=== PATIENT | male | born 1985 | race Caucasian/White ===

== ENCOUNTER 2017-06-08 13:19 | Emergency (ER) | payer OTHER ==
[2017-06-08 13:43] VITALS: BP 113/66
--- NOTE | 2017-06-08 13:58 | UC ---
Respiratory Complaint HPI - HPI Summary HPI Summary: 32 yo male with type I DM presents with cough and congestion x 3 days no CP or SOB malaise and myalgias vomiting x 1 when he gagged on phelgm high blood sugars since ill gets bronchitis once/yr and this is his typical presentation - History of Current Complaint Chief Complaint: UCGeneralIllness Stated Complaint: FLU LIKE SXS Time Seen by Provider: 06/08/17 13:44 Hx Obtained From: Patient Onset/Duration: Gradual Onset, Lasting Days Timing: Constant Severity Initially: Mild Severity Currently: Moderate Pain Intensity: 4 Pain Scale Used: 0-10 Numeric Character: Cough: Productive Aggravating Factors: Exertion, Deep Breaths Alleviating Factors: Nothing Associated Signs And Symptoms: Positive: Chills, Nasal Congestion. Negative: Dyspnea Related History: Similar Episode/Dx as: - bronchitis - Allergies/Home Medications Allergies/Adverse Reactions: Allergies Allergy/AdvReac Type Severity Reaction Status Date / Time Cefaclor [From [facility]] Allergy Severe Hives Verified 06/08/17 13:34 Penicillins Allergy Severe Anaphylatic Verified 06/08/17 13:34 Shock PMH/Surg Hx/FS Hx/Imm Hx Previously Healthy: Yes Endocrine History: Diabetes Respiratory History: Bronchitis, Pneumonia - x1 as child - Surgical History Surgical History: None - Family History Known Family History: Positive: Cardiac Disease, Hypertension, Diabetes - Social History Alcohol Use: None Substance Use Type: Marijuana Substance Use Comment - Amount & Last Used: "once in a while" Smoking Status (MU): Former Smoker Type: Cigarettes Amount Used/How Often: 1-4 daily Length of Time of Smoking/Using Tobacco: 11 YRS Have You Smoked in the Last Year: Yes When Did the Patient Quit Smoking/Using Tobacco: QUIT NOVEMBER 2015 - Immunization History Most Recent Influenza Vaccination: none Review of Systems Constitutional: Negative Skin: Negative Eyes: Negative ENT: Nasal Discharge Respiratory: Cough Cardiovascular: Negative Gastrointestinal: Negative Genitourinary: Negative Motor: Negative Neurovascular: Negative Musculoskeletal: Negative Neurological: Negative Psychological: Negative All Other Systems Reviewed And Are Negative: Yes Physical Exam Triage Information Reviewed: Yes Appearance: Well-Appearing - non toxic appearing, No Pain Distress, Well- Nourished Vital Signs: Initial Vital Signs Temp 97.5 F 06/08/17 13:35 Pulse 92 06/08/17 13:35 Resp 16 06/08/17 13:35 BP 113/66 06/08/17 13:35 Pulse Ox 99 06/08/17 13:35 Vital Signs Reviewed: Yes Eyes: Positive: Conjunctiva Clear ENT: Positive: Hearing grossly normal, Nasal congestion, Uvula midline. Negative: Nasal drainage, TMs normal, TM bulging, Trismus, Muffled voice, Sinus tenderness Neck exam: Normal Neck: Positive: Supple, Nontender, No Lymphadenopathy Respiratory: Positive: No respiratory distress, No accessory muscle use, Rhonchi Cardiovascular: Positive: RRR, No Murmur Musculoskeletal: Positive: ROM Intact, No Edema Neurological: Positive: Alert Psychological Exam: Normal Skin Exam: Normal UC Diagnostic Evaluation - Laboratory O2 Sat by Pulse Oximetry: 99 - normal /not hypoxic Diagnostic Studies Comment: Udip +++glucose, trace ketones Respiratory Course/Dx - Differential Dx/Diagnosis Provider Diagnoses: acute bronchitis. hyperglycemia Discharge - Discharge Plan Condition: Stable Disposition: HOME Prescriptions: Benzonatate CAP* [Tessalon CAP*] 100 - 200 mg PO TID PRN #28 cap PRN Reason: Cough DOXYcycline CAP(*) [DOXYcycline 100MG CAP(*)] 100 mg PO BID #20 cap Patient Education Materials: Acute Bronchitis (ED) Forms: *Work Release Referrals: Marcos Burkett DO [Primary Care Provider] - 6 Days () Additional Instructions: keep an eye on your blood sugar recheck in ER for new or worsening symptoms
== END 2017-06-08 14:11 | disposition home or self-care (01) ==
LOC: UCCORT 13:19
DX: J20.9 Acute bronchitis, unspecified (principal); E10.65 Type 1 diabetes mellitus with hyperglycemia; F12.90 Cannabis use, unspecified, uncomplicated; Z88.0 Allergy status to penicillin; Z87.01 Personal history of pneumonia (recurrent); Z87.891 Personal history of nicotine dependence
CPT/HCPCS: 81003; 87502; 99212; G0463

== ENCOUNTER 2017-07-28 15:44 | Emergency (ER) | payer OTHER ==
--- NOTE | 2017-07-28 16:09 | UC ---
Respiratory Complaint HPI - HPI Summary HPI Summary: 32 year old male presents with complains of sinus congestion and post nasal drip. - History of Current Complaint Stated Complaint: COUGH Time Seen by Provider: 07/28/17 16:08 Hx Obtained From: Patient Onset/Duration: Sudden Onset Severity Initially: Moderate Severity Currently: Moderate Pain Scale Used: 0-10 Numeric - 5 Character: Cough: Nonproductive Alleviating Factors: Bronchodilator Associated Signs And Symptoms: Positive: Negative - Allergies/Home Medications Allergies/Adverse Reactions: Allergies Allergy/AdvReac Type Severity Reaction Status Date / Time Cefaclor [From Ceclor] Allergy Severe Hives Verified 07/28/17 16:13 Penicillins Allergy Severe Anaphylatic Verified 07/28/17 16:13 Shock Home Medications: Home Medications Ibuprofen [Ibuprofen 200 MG] 800 mg PO PRN 07/28/17 [History] PMH/Surg Hx/FS Hx/Imm Hx Previously Healthy: Yes - Surgical History Surgical History: None - Family History Known Family History: Positive: Unknown, Cardiac Disease, Hypertension, Diabetes - Social History Alcohol Use: None Substance Use Type: Marijuana Substance Use Comment - Amount & Last Used: "once in a while" Smoking Status (MU): Former Smoker Type: Cigarettes Amount Used/How Often: 1-4 daily Length of Time of Smoking/Using Tobacco: 11 YRS Have You Smoked in the Last Year: Yes When Did the Patient Quit Smoking/Using Tobacco: QUIT NOVEMBER 2015 - Immunization History Most Recent Influenza Vaccination: none Review of Systems Constitutional: Negative Skin: Negative Eyes: Negative ENT: Sore Throat, Nasal Discharge, Sinus Congestion, Sinus Pain/Tenderness Respiratory: Cough Cardiovascular: Negative Gastrointestinal: Negative Genitourinary: Negative Motor: Negative Neurovascular: Negative Musculoskeletal: Negative Neurological: Negative Psychological: Negative All Other Systems Reviewed And Are Negative: Yes Physical Exam Triage Information Reviewed: Yes Vital Signs Reviewed: Yes Eye Exam: Normal ENT: Positive: Pharyngeal erythema, Nasal congestion, Nasal drainage, Sinus tenderness Dental Exam: Normal Neck exam: Normal Neck: Positive: 1 Respiratory Exam: Normal Cardiovascular Exam: Normal Abdominal Exam: Normal Musculoskeletal Exam: Normal Neurological Exam: Normal Psychological Exam: Normal Skin Exam: Normal Respiratory Course/Dx - Differential Dx/Diagnosis Provider Diagnoses: post nasal drip. nasal congestion. sore throat Discharge - Discharge Plan Condition: Stable Disposition: HOME Prescriptions: Azithromyxin JEROMY (NF) [Z-Jeromy (Zithromax) 250 mg tabs #6] 2 tab PO .TODAY, THEN 1 DAILY #6 tab LoraTADine TAB(NF) [Claritin 10 MG TAB(NF)] 10 mg PO DAILY #30 tab Magic M W2 Chavo/Maal/Nyst/Lido* 5 ml SWISH SPIT QID PRN #120 ml PRN Reason: Pain Methylprednisolone [Medrol Dosepak 4 MG*] 4 mg PO .SEE JEROMY INSTRUCTION #21 tab Patient Education Materials: Sinusitis (ED) Forms: *Work Release Referrals: Marcos Burkett DO [Primary Care Provider] -
[2017-07-28 16:22] VITALS: BP 124/68
== END 2017-07-28 16:37 | disposition home or self-care (01) ==
LOC: UCCORT 15:44
DX: J02.9 Acute pharyngitis, unspecified (principal); R09.82 Postnasal drip; R09.81 Nasal congestion; Z88.1 Allergy status to other antibiotic agents; Z88.0 Allergy status to penicillin; Z87.891 Personal history of nicotine dependence
CPT/HCPCS: 99212; G0463

== ENCOUNTER 2017-10-14 12:01 | Emergency (ER) | payer OTHER ==
[2017-10-14 12:26] VITALS: BP 134/90
[2017-10-14] MEDS ORDERED: Ondansetron ODT TAB* 4 MG PO ONE (13:07)
--- NOTE | 2017-10-14 13:15 | UC ---
Abdominal Pain Female HPI - HPI Summary HPI Summary: patient is a type 1 diabetic with an insulin pump---reports a coworker came down with GI BUG and now he has similar sx---6-7 episodes of vomiting and diarrhea beginning at 1 am---patient is hoping for rx of zofran - History of Current Complaint Hx Obtained From: Patient Onset/Duration: Sudden Onset, Lasting Hours - 12 Timing: Constant Severity Initially: Moderate Severity Currently: Moderate Pain Intensity: 8 Pain Scale Used: 0-10 Numeric Location: Diffuse Radiates: No Character: Colicy, Cramping Aggravating Factor(s): Food Alleviating Factor(s): Vomiting Associated Signs and Symptoms: Positive: Nausea, Vomiting, Diarrhea <Brisa Pope - Last Filed: 10/19/17 12:15> <Regla Mills - Last Filed: 10/19/17 14:55> - History of Current Complaint Chief Complaint: UCAbdominalPain Stated Complaint: VOMITING,CHILLS Time Seen by Provider: 10/14/17 12:59 Allergies/Adverse Reactions: Allergies Allergy/AdvReac Type Severity Reaction Status Date / Time cefaclor [From Ceclor] Allergy Hives Verified 10/14/17 12:18 Penicillins Allergy Anaphylatic Verified 10/14/17 12:18 Shock PMH/Surg Hx/FS Hx/Imm Hx Previously Healthy: No Endocrine History: Diabetes - Surgical History Surgical History: None - Family History Known Family History: Positive: Unknown, Cardiac Disease, Hypertension, Diabetes - Social History Occupation: Employed Full-time Lives: With Family Alcohol Use: None Substance Use Type: Marijuana Substance Use Comment - Amount & Last Used: "once in a while" Smoking Status (MU): Former Smoker Type: Cigarettes Amount Used/How Often: 1-4 daily Length of Time of Smoking/Using Tobacco: 11 YRS Have You Smoked in the Last Year: Yes When Did the Patient Quit Smoking/Using Tobacco: QUIT NOVEMBER 2015 - Immunization History Most Recent Influenza Vaccination: none <Brisa Pope - Last Filed: 10/19/17 12:15> Review of Systems Constitutional: Chills, Fatigue Skin: Negative Eyes: Negative ENT: Negative Respiratory: Negative Cardiovascular: Negative Gastrointestinal: Abdominal Pain, Vomiting, Diarrhea, Nausea Genitourinary: Negative Motor: Negative Neurovascular: Negative Musculoskeletal: Negative Neurological: Negative Psychological: Negative Is Patient Immunocompromised?: No All Other Systems Reviewed And Are Negative: Yes <Brisa Pope - Last Filed: 10/19/17 12:15> Physical Exam Triage Information Reviewed: Yes Appearance: Well-Appearing, No Pain Distress - no odor of ketosis, Well- Nourished Vital Signs: Initial Vital Signs Temp 98 F 10/14/17 12:19 Pulse 84 10/14/17 12:19 Resp 16 10/14/17 12:19 BP 134/90 10/14/17 12:19 Pulse Ox 100 10/14/17 12:19 Eye Exam: Normal Eyes: Positive: Conjunctiva Clear ENT Exam: Normal ENT: Positive: Normal ENT inspection, Hearing grossly normal, Pharynx normal, TMs normal, Uvula midline. Negative: Nasal congestion, Nasal drainage, Trismus , Muffled voice, Hoarse voice, Dental tenderness, Sinus tenderness Dental Exam: Normal Neck exam: Normal Neck: Positive: Supple, Nontender, No Lymphadenopathy Respiratory Exam: Normal Respiratory: Positive: Chest non-tender, Lungs clear, Normal breath sounds, No respiratory distress, No accessory muscle use Cardiovascular Exam: Normal Cardiovascular: Positive: RRR, No Murmur, Pulses Normal, Brisk Capillary Refill Abdominal Exam: Other Abdomen Description: Positive: No Organomegaly, Soft, Other: - diffuse tenderness. Negative: CVA Tenderness (R), CVA Tenderness (L) Bowel Sounds: Positive: Present Musculoskeletal Exam: Normal Musculoskeletal: Positive: Strength Intact, ROM Intact, No Edema Neurological Exam: Normal Neurological: Positive: Alert, Muscle Tone Normal Psychological Exam: Normal Psychological: Positive: Normal Response To Family, Age Appropriate Behavior Skin Exam: Normal <Brisa Pope - Last Filed: 10/19/17 12:15> Vital Signs: Initial Vital Signs Temp 98 F 10/14/17 12:19 Pulse 84 10/14/17 12:19 Resp 16 10/14/17 12:19 BP 134/90 10/14/17 12:19 Pulse Ox 100 10/14/17 12:19 <Regla Mills - Last Filed: 10/19/17 14:55> Diagnostics - Laboratory Diagnostic Studies Completed/Ordered: FSBS 412, Urine NO Ketones, +2 glucose <Brisa Pope - Last Filed: 10/19/17 12:15> Abd Pain Female Course/Dx - Course Course Of Treatment: extensive discussion regarding dehydration and ketosis. PAtient is refuseing hospital treatment at this time. He is agreeable that if not resolved in 8-12 hours OR WORSENS AT ANYTIME, to go directly to hospital, will rx zofran and encourage to advance clear liquids as tolerated - Differential Dx/Diagnosis Provider Diagnoses: hyperglycemia, acute nausea, vomiting, diarrhea, viral syndrome <Brisa Pope - Last Filed: 10/19/17 12:15> Discharge - Sign-Out/Discharge Documenting (check all that apply): Discharge - Billing Disposition and Condition Condition: STABLE Disposition: HOME <Brisa Pope - Last Filed: 10/19/17 12:15> - Billing Disposition and Condition Condition: STABLE Disposition: HOME <Regla Mills - Last Filed: 10/19/17 14:55> - Discharge Plan Condition: Stable Disposition: HOME Prescriptions: Ondansetron ODT TAB* [Zofran 4 MG Odt TAB*] 4 mg PO Q6H PRN #8 tab.odt PRN Reason: nausea/vomiting Patient Education Materials: Clear Liquid Diet (ED), Managing Diabetes During Sick Days (ED), Acute Nausea and Vomiting (ED), Diabetic Hyperglycemia (ED) Forms: *Work Release Referrals: Marcos Burkett, [Primary Care Provider] - 2 Days Attestation Statement User Type: Provider - I was available for consult. This patient was seen by the [facility]. The patient was not presented to, seen by, or examined by me. -Pramodj <Regla Mills - Last Filed: 10/19/17 14:55>
== END 2017-10-14 14:09 | disposition home or self-care (01) ==
LOC: UCEAST 12:01
DX: E10.65 Type 1 diabetes mellitus with hyperglycemia (principal); Z96.41 Presence of insulin pump (external) (internal); B34.9 Viral infection, unspecified; R11.2 Nausea with vomiting, unspecified; R19.7 Diarrhea, unspecified; Z88.1 Allergy status to other antibiotic agents; Z88.0 Allergy status to penicillin; Z87.891 Personal history of nicotine dependence
CPT/HCPCS: 81003; 99212; A9270-GY; G0463

== ENCOUNTER 2017-11-09 09:36 | Emergency (ER) | payer OTHER ==
[2017-11-09 12:04] VITALS: BP 143/93
--- NOTE | 2017-11-09 12:12 | UC ---
Dental HPI - HPI Summary HPI Summary: PATIENT WITH 4 DAYS OF LEFT LOWER DENTAL PAIN. STATES HIS WISDOM TOOTH IS IMPACTED. HE HAS BEEN USING IBUPROFEN 800 MG WITH ADEQUATE RELIEF UNTIL YESTERDAY WHEN IT NO LONGER WORKED. HAS AN APPOINTMENT WITH HIS DENTIST TOMORROW AND IS HERE LOOKING FOR SOME PAIN MEDICATION TO GET HIM THROUGH UNTIL HIS APPOINTMENT. - History of Current Complaint Chief Complaint: UCDentalProblem Stated Complaint: DENTAL PAIN Time Seen by Provider: 11/09/17 11:47 Hx Obtained From: Patient Onset/Duration: Gradual Onset, Lasting Days, Still Present Pain Intensity: 9 Pain Scale Used: 0-10 Numeric Aggravating Factor(s): Chewing - Allergies/Home Medications Allergies/Adverse Reactions: Allergies Allergy/AdvReac Type Severity Reaction Status Date / Time cefaclor [From [facility]] Allergy Hives Verified 11/09/17 09:47 Penicillins Allergy Anaphylatic Verified 11/09/17 09:47 Shock Home Medications: Home Medications Ibuprofen TAB* [Advil TAB*] 800 mg PO Q6HR PRN 11/09/17 [History Confirmed 11/09] PMH/Surg Hx/FS Hx/Imm Hx Endocrine History: Diabetes - TYPE I Respiratory History: Asthma Psychological History: Anxiety - Surgical History Surgical History: None - Family History Known Family History: Positive: Cardiac Disease, Hypertension, Diabetes - Social History Alcohol Use: None Substance Use Type: Marijuana Substance Use Comment - Amount & Last Used: occassionally Smoking Status (MU): Current Some Day Smoker Type: Cigarettes Amount Used/How Often: 5 cig weekly' Length of Time of Smoking/Using Tobacco: 11 YRS Have You Smoked in the Last Year: Yes When Did the Patient Quit Smoking/Using Tobacco: QUIT NOVEMBER 2015 - Immunization History Most Recent Influenza Vaccination: none Review of Systems Constitutional: Negative Skin: Negative ENT: Dental Pain Respiratory: Negative Cardiovascular: Negative Gastrointestinal: Negative All Other Systems Reviewed And Are Negative: Yes Physical Exam Triage Information Reviewed: Yes Appearance: Well-Appearing, No Pain Distress, Well-Nourished Vital Signs: Initial Vital Signs Temp 97.6 F 11/09/17 09:48 Pulse 87 11/09/17 09:48 Resp 16 11/09/17 09:48 BP 137/96 11/09/17 09:48 Pulse Ox 100 11/09/17 09:48 Vital Signs Reviewed: Yes Eyes: Positive: Conjunctiva Clear ENT: Positive: Hearing grossly normal, Pharynx normal Dental: Positive: Percussion Tenderness @ - LEFT LOWER 3RD MOLAR, Other: - LEFT LOWER 3RD MOLAR IMPACTED Neck: Positive: Supple, Nontender, No Lymphadenopathy Respiratory: Positive: No respiratory distress, No accessory muscle use Cardiovascular: Positive: Pulses Normal Abdomen Description: Positive: Soft Musculoskeletal: Positive: No Edema Neurological: Positive: Alert Psychological: Positive: Age Appropriate Behavior Skin: Negative: rashes Dental Complaint Course/Dx - Differential Dx/Diagnosis Provider Diagnoses: DENTAL PAIN/IMPACTED LEFT LOWER 3RD MOLAR Discharge - Sign-Out/Discharge Documenting (check all that apply): Discharge/Admit/Transfer - Discharge Plan Condition: Stable Disposition: HOME Prescriptions: Chlorhexidine MW 0.12% 473ML* [Peridex Mouth Wash 0.12%*] 15 ml SWISH SPIT BID # 1 bottle HYDROcodone/ACETAMIN 5-325 MG* [Kingsley 5-325 TAB*] 1 tab PO Q6H PRN #15 tab MDD 4 PRN Reason: Pain Patient Education Materials: Toothache (ED) Forms: *Work Release Referrals: Marcos Burkett DO [Primary Care Provider] - If Needed Additional Instructions: NO SIGN OF INFECTION TODAY. KEEP YOUR FOLLOW-UP WITH YOUR DENTIST TOMORROW. - Billing Disposition and Condition Condition: STABLE Disposition: HOME
== END 2017-11-09 12:10 | disposition home or self-care (01) ==
LOC: UCEAST 09:36
DX: K01.1 Impacted teeth (principal); F17.210 Nicotine dependence, cigarettes, uncomplicated; Z88.3 Allergy status to other anti-infective agents; Z88.0 Allergy status to penicillin
CPT/HCPCS: 99212; G0463

== ENCOUNTER 2017-11-15 11:45 | Emergency (ER) | payer OTHER ==
[2017-11-15 12:07] VITALS: BP 152/95
--- NOTE | 2017-11-15 12:36 | UC ---
Dental HPI - HPI Summary HPI Summary: Pt c/o dental pain that began over 10 days ago. Pt was seen here [facility] on for same c/o and was given norco for pain, 4 days worth. Pt states he is scheduled to have 5 teeth extracted as soon as he he saves for cost of extraction~ $3000. - History of Current Complaint Chief Complaint: UCDentalProblem Stated Complaint: TOOTH PAIN Time Seen by Provider: 11/15/17 12:21 Hx Obtained From: Patient Onset/Duration: Gradual Onset, Lasting Days, Still Present Severity: Severe Pain Intensity: 10 Aggravating Factor(s): Heat, Cold, Chewing Alleviating Factor(s): Other (see comments) - narcotics Related History: Previous Dental Care on Same Tooth - Allergies/Home Medications Allergies/Adverse Reactions: Allergies Allergy/AdvReac Type Severity Reaction Status Date / Time cefaclor [From [facility]] Allergy Hives Verified 11/09/17 09:47 Penicillins Allergy Anaphylatic Verified 11/09/17 09:47 Shock Home Medications: Home Medications Clindamycin HCl 300 mg PO Q8H 11/15/17 [History Confirmed 11/15/17] PMH/Surg Hx/FS Hx/Imm Hx Previously Healthy: Yes - Surgical History Surgical History: None - Family History Known Family History: Positive: Cardiac Disease, Hypertension, Diabetes - Social History Occupation: Employed Full-time Lives: With Family Alcohol Use: None Substance Use Type: Marijuana Substance Use Comment - Amount & Last Used: occassionally, USED IT YESTERDAY Smoking Status (MU): Current Some Day Smoker Type: Cigarettes Amount Used/How Often: 5 cig weekly' Length of Time of Smoking/Using Tobacco: 11 YRS Have You Smoked in the Last Year: Yes When Did the Patient Quit Smoking/Using Tobacco: QUIT NOVEMBER 2015 - Immunization History Most Recent Influenza Vaccination: none Review of Systems Constitutional: Negative Skin: Negative Eyes: Negative ENT: Dental Pain Respiratory: Negative Cardiovascular: Negative Gastrointestinal: Negative Genitourinary: Negative Motor: Negative Neurovascular: Negative Musculoskeletal: Negative Neurological: Negative Psychological: Negative Is Patient Immunocompromised?: No All Other Systems Reviewed And Are Negative: Yes Physical Exam Triage Information Reviewed: Yes Appearance: Well-Appearing Vital Signs: Initial Vital Signs Temp 97.4 F 11/15/17 11:59 Pulse 81 11/15/17 11:59 Resp 18 11/15/17 11:59 BP 152/95 11/15/17 11:59 Pulse Ox 100 11/15/17 11:59 Vital Signs Reviewed: Yes Eye Exam: Normal ENT Exam: Normal Dental Exam: Other Dental: Positive: Percussion Tenderness @ Neck exam: Normal Respiratory Exam: Normal Cardiovascular Exam: Normal Musculoskeletal Exam: Normal Neurological Exam: Normal Psychological Exam: Normal Skin Exam: Normal Dental Complaint Course/Dx - Course Course Of Treatment: [place] [facility] [place] and given 4 days supply of norco. Reference #: [id number]. Patient Name:Jay ZhengBirth Date:1985. Address:[address] [place] [id number]:Male. Rx WrittenRx DispensedDrugQuantityDays SupplyPrescriber Name. 2017hydrocodone-acetaminophen 5-325 mg [id number] Menon) - Differential Dx/Diagnosis Differential Diagnosis/Dx: Fractured Tooth Provider Diagnoses: dental pain Discharge - Sign-Out/Discharge Documenting (check all that apply): Discharge/Admit/Transfer - Discharge Plan Condition: Stable Disposition: HOME Prescriptions: Lidocaine 2% VISCOUS* [Xylocaine 2% Viscous*] 15 ml SWISH SPIT Q4H PRN #1 btl PRN Reason: Pain Patient Education Materials: Toothache (ED) Forms: *Work Release Referrals: Marcos Burkett, [Primary Care Provider] - If Needed Additional Instructions: Please follow up with your pCP and dental care provider as soon as possible. - Billing Disposition and Condition Condition: STABLE Disposition: HOME
== END 2017-11-15 12:53 | disposition home or self-care (01) ==
LOC: UCCORT 11:45
DX: K08.89 Other specified disorders of teeth and supporting structures (principal); Z88.1 Allergy status to other antibiotic agents; Z88.0 Allergy status to penicillin; F17.210 Nicotine dependence, cigarettes, uncomplicated
CPT/HCPCS: 99212; G0463

== ENCOUNTER 2017-12-03 14:02 | Emergency (ER) | payer OTHER ==
[2017-12-03 14:42] VITALS: BP 136/81
[2017-12-03] MEDS ORDERED: Ondansetron ODT TAB* 4 MG PO ONE (14:53)
--- NOTE | 2017-12-03 15:12 | ED ---
GI/ HPI - HPI Summary HPI Summary: 32 yr old male with the complaint of NVD. Onset 300 am today. Denies abdominal pain presently, he states prior to getting diarrhea he gets cramps. he feels he has a stomach bug. He has been able to hold down clear liquids, but food makes him nauseated. The patient denies fever, chills. Denies dizziness. He is a type one diabetic for 25 years. He states he has an insulin pump. He has not been. - History of Current Complaint Chief Complaint: UCGI Time Seen by Provider: 12/03/17 14:45 Stated Complaint: VOMITTING Pain Intensity: 8 - Allergy/Home Medications Allergies/Adverse Reactions: Allergies Allergy/AdvReac Type Severity Reaction Status Date / Time cefaclor [From [facility]] Allergy Hives Verified 12/03/17 14:33 Penicillins Allergy Anaphylatic Verified 12/03/17 14:33 Shock PMH/Surg Hx/FS Hx/Imm Hx Endocrine/Hematology History: Reports: Hx Diabetes - Type I Denies: Hx Thyroid Disease Cardiovascular History: Denies: Hx Hypertension Respiratory History: Reports: Hx Asthma Denies: Hx Chronic Obstructive Pulmonary Disease (COPD) GI History: Denies: Hx Ulcer Neurological History: Reports: Hx Peripheral Neuropathy Infectious Disease History: No Infectious Disease History: Denies: Hx Clostridium Difficile, Hx Hepatitis, Hx Human Immunodeficiency Virus (HIV), Hx of Known/Suspected MRSA, Hx Shingles, Hx Tuberculosis, Hx Known/ Suspected VRE, Hx Known/Suspected VRSA, History Other Infectious Disease, Traveled Outside the [place] in Last 30 Days - Family History Known Family History: Positive: Cardiac Disease, Hypertension, Diabetes - Social History Alcohol Use: None Hx Substance Use: Yes Substance Use Type: Reports: Marijuana Substance Use Comment - Amount & Last Used: occassionally, 2 nights ago Hx Tobacco Use: Yes Smoking Status (MU): Former Smoker Type: Cigarettes Amount Used/How Often: 5 cig weekly Length of Time of Smoking/Using Tobacco: 11 YRS Have You Smoked in the Last Year: Yes Review of Systems Constitutional: Negative Negative: Palpitations, Chest Pain Negative: Shortness Of Breath, Cough Positive: Vomiting, Diarrhea, Nausea Negative: Rash Negative: Headache, Weakness All Other Systems Reviewed And Are Negative: Yes Physical Exam Triage Information Reviewed: Yes Vital Signs On Initial Exam: Initial Vitals Temp Pulse Resp BP Pulse Ox 97.6 F 89 16 136/81 99 12/03/17 14:34 12/03/17 14:34 12/03/17 14:34 12/03/17 14:34 12/03/17 14:34 Vital Signs Reviewed: Yes Appearance: Positive: Well-Appearing, No Pain Distress Skin: Positive: Skin Color Reflects Adequate Perfusion Eyes: Positive: EOMI ENT: Positive: Pharynx normal Neck: Positive: Supple Respiratory/Lung Sounds: Positive: Clear to Auscultation, Breath Sounds Present Cardiovascular: Positive: RRR. Negative: Murmur Abdomen Description: Positive: Nontender Musculoskeletal: Positive: Strength/ROM Intact Neurological: Positive: Sensory/Motor Intact, Alert, Oriented to Person Place, Time, CN Intact II-III Psychiatric: Positive: Normal - Regina Coma Scale Best Eye Response: 4 - Spontaneous Best Motor Response: 6 - Obeys Commands Best Verbal Response: 5 - Oriented Coma Scale Total: 15 Diagnostics - Vital Signs Vital Signs Temp Pulse Resp BP Pulse Ox 12/03/17 14:34 97.6 F 89 16 136/81 99 - Laboratory Lab Statement: Any lab studies that have been ordered have been reviewed, and results considered in the medical decision making process. GIGU Course/Dx - Course Course Of Treatment: 32 yr with trace ketones in his urine. He states prior to coming here his BS was 355 on his meter at home. he is not dizzy, tachy or light headed. Our accu check machine is not functioning at this time to read his blood sugar. He does not smell of ketones or look toxic. He wants to drive himself to [place] ER for blood work and further evaluation. he feels better after the zofran here, and he feels completely comfortable driving. - Diagnoses Provider Diagnoses: Gastroenteritis, Diabetes mellitus, Hypertension Discharge - Sign-Out/Discharge Documenting (check all that apply): Discharge/Admit/Transfer - Discharge Plan Condition: Good Disposition: [facility] Patient Education Materials: Type 1 Diabetes in Adults: New Diagnosis (ED), Gastroenteritis (ED), Hypertension (ED) Referrals: Marcos Burkett DO [Primary Care Provider] - Additional Instructions: You need to go to the ER here in [place] for further evaluation of the state of your diabetes, blood sugar. Do not delay, go now. You have chosen to not go by ambulance. - Billing Disposition and Condition Condition: GOOD Disposition: EMTALA
== END 2017-12-03 15:53 | disposition short-term general hospital (02) ==
LOC: UCCORT 14:02
DX: K52.9 Noninfective gastroenteritis and colitis, unspecified (principal); E11.9 Type 2 diabetes mellitus without complications; I10 Essential (primary) hypertension; Z87.891 Personal history of nicotine dependence; Z88.3 Allergy status to other anti-infective agents; Z88.0 Allergy status to penicillin
CPT/HCPCS: 81003; 99212; A9270-GY; G0463

== ENCOUNTER 2018-02-07 17:12 | Emergency (ER) | payer OTHER ==
[2018-02-07 18:01] VITALS: BP 129/83
--- NOTE | 2018-02-07 18:13 | UC ---
Lower Extremity/Ankle HPI - HPI Summary HPI Summary: This is keith Russell documenting for attending Johnathon Meehan MD. This patient is a 32 year old M presenting to [facility] accompanied by friend with a chief complaint of bilateral lower extremity edema that began 3 days ago. The patient rates the pain 6/10 in severity. Symptoms aggravated by nothing. Symptoms alleviated by nothing. Patient denies abd swelling, SOB, and CP. Pt reports having similar symptoms previously, and being told he had kidney issues . Pt reports he recently ate more ramen than he usually does. Medications reviewed. Allergies reviewed. - History of Current Complaint Chief Complaint: UCLowerExtremity Stated Complaint: LEG SWELLING Time Seen by Provider: 02/07/18 18:05 Hx Obtained From: Patient Onset/Duration: Sudden Onset, Lasting Days, Still Present Severity Initially: Moderate Severity Currently: Moderate Pain Intensity: 6 Pain Scale Used: 0-10 Numeric Aggravating Factor(s): Nothing Alleviating Factor(s): Nothing Able to Bear Weight: Yes - Allergies/Home Medications Allergies/Adverse Reactions: Allergies Allergy/AdvReac Type Severity Reaction Status Date / Time cefaclor [From Ceclor] Allergy Hives Verified 02/07/18 18:02 Penicillins Allergy Anaphylatic Verified 02/07/18 18:02 Shock PMH/Surg Hx/FS Hx/Imm Hx Previously Healthy: No Endocrine History: Diabetes - Type 1 Respiratory History: Asthma - Surgical History Surgical History: None - Family History Known Family History: Positive: Cardiac Disease, Hypertension, Diabetes - Social History Occupation: Employed Full-time Lives: Alone Alcohol Use: None Substance Use Type: Marijuana Substance Use Comment - Amount & Last Used: daily Smoking Status (MU): Light Every Day Tobacco Smoker Type: Cigarettes Amount Used/How Often: 5 cig weekly Length of Time of Smoking/Using Tobacco: 11 YRS Have You Smoked in the Last Year: Yes When Did the Patient Quit Smoking/Using Tobacco: QUIT NOVEMBER 2015 - Immunization History Most Recent Influenza Vaccination: none Review of Systems Respiratory: Other - Negative SOB Cardiovascular: Other - Negative CP Gastrointestinal: Other - Negative abd swelling Musculoskeletal: Edema All Other Systems Reviewed And Are Negative: Yes Physical Exam - Summary Physical Exam Summary: General: well-appearing, no pain distress Skin: warm, color reflects adequate perfusion, dry. Head: normal Eyes: EOMI, CHAPIS ENT: normal Neck: supple, nontender Respiratory: CTA, breath sounds present Cardiovascular: RRR Abdomen: soft, nontender Bowel: present Musculoskeletal: Bilateral pedal edema. No erythema. No calor, strength/ROM intact Neurological: sensory/motor intact, A&O x3 Psychological: affect/mood appropriate Triage Information Reviewed: Yes Vital Signs: Initial Vital Signs Temp 97.4 F 02/07/18 17:55 Pulse 85 02/07/18 17:55 Resp 16 02/07/18 17:55 BP 129/83 02/07/18 17:55 Pulse Ox 100 02/07/18 17:55 Vital Signs Reviewed: Yes Lower Extremity Course/Dx - Course Course Of Treatment: NO SOB. LUNGS CTA. ABD NON DISTENDED. NO HX RENAL INSUFFICIENCY. WILL RX HCTZ 12.5MG PO QD PRN EDEMA AND CHECK KIDNEY FUNCTION. IF THE PATIENT HAS RENAL INSUFFICIENCY, HE WILL NEED TO STOP THE HCTZ. F/U PMD; RECHECK SOONER IF WORSE. - Differential Dx/Diagnosis Provider Diagnoses: BILATERAL PEDAL EDEMA Discharge - Sign-Out/Discharge Documenting (check all that apply): Patient Departure - Discharge Plan Condition: Stable Disposition: HOME Prescriptions: hydroCHLOROthiazide [Hydrochlorothiazide] 12.5 mg PO DAILY #7 tablet Patient Education Materials: Leg Edema (ED) Forms: *Work Release Referrals: Marcos Burkett DO [Primary Care Provider] - Additional Instructions: FOLLOW UP WITH YOUR DOCTOR. YOUR KIDNEY FUNCTION LAB TESTS ARE PENDING. IF YOUR KIDNEY FUNCTION IS IMPAIRED , DO NOT TAKE ANY MORE OF THE HCTZ AND CONTACT YOUR DOCTOR. GET RECHECKED FOR ANY WORSENING OF YOUR CONDITION; SHORTNESS OF BREATH, YOU FEEL ILL OR QUESTIONS OR CONCERNS. - Billing Disposition and Condition Condition: STABLE Disposition: Home
[2018-02-08 11:19] LABS: EGFR Non-African American 99.1 (>60)
[2018-02-08 11:22] LABS: ABS Basophils 0.1 10^3/ul (0-0.2); ABS Eosinophils 0.1 10^3/ul (0-0.6); ABS Lymphocytes 2.2 10^3/ul (1.0-4.8); ABS Monocytes 0.6 10^3/ul (0-0.8); ABS Neutrophils 5.1 10^3/ul (1.5-7.7); ABS Nucleated RBC 0 10^3/ul; Eosinophil % 1.7 % (0-6); Hematocrit 42 % (42-52); Lymphocyte % 26.6 % (25-47); Mean Corpuscular HGB Conc 36 g/dl (31-36); Mean Corpuscular Hemoglobin 29 pg (27-31); Mean Corpuscular Volume 82 fL (80-94); Mean Platelet Volume 10.3 um3 (7.4-10.4); Nucleated Red Blood Cells % 0.2; Platelet Count 207 10^3/ul (150-450); Red Blood Count 5.19 10^6/ul (4.00-5.40); Red Cell Distribution Width 13 % (10.5-15); White Blood Count 8.1 10^3/ul (3.5-10.8)
--- NOTE | 2018-02-08 16:11 | UC ---
- Progress Note Progress Note: CBC, BNP, and CMP WNL. glucose is high, but pt is diabetic. No change in plan Discharge - Sign-Out/Discharge Documenting (check all that apply): Patient Departure, Post-Discharge Follow Up - Discharge Plan Condition: Stable Disposition: HOME Prescriptions: hydroCHLOROthiazide [Hydrochlorothiazide] 12.5 mg PO DAILY #7 tablet Patient Education Materials: Leg Edema (ED) Forms: *Work Release Referrals: Marcos Burkett DO [Primary Care Provider] - Additional Instructions: FOLLOW UP WITH YOUR DOCTOR. YOUR KIDNEY FUNCTION LAB TESTS ARE PENDING. IF YOUR KIDNEY FUNCTION IS IMPAIRED , DO NOT TAKE ANY MORE OF THE HCTZ AND CONTACT YOUR DOCTOR. GET RECHECKED FOR ANY WORSENING OF YOUR CONDITION; SHORTNESS OF BREATH, YOU FEEL ILL OR QUESTIONS OR CONCERNS. - Billing Disposition and Condition Condition: STABLE Disposition: Home
== END 2018-02-07 18:23 | disposition home or self-care (01) ==
LOC: UCEAST 17:12
DX: R60.0 Localized edema (principal); Z88.0 Allergy status to penicillin; Z88.1 Allergy status to other antibiotic agents; F17.210 Nicotine dependence, cigarettes, uncomplicated; Z01.818 Encounter for other preprocedural examination
CPT/HCPCS: 36415; 80053; 83880; 85025; 99212; G0463

== ENCOUNTER 2018-02-11 12:48 | Emergency (ER) | payer OTHER ==
[2018-02-11 13:08] VITALS: BP 131/84
[2018-02-11] MEDS ORDERED: Ondansetron ODT TAB* 4 MG PO ONE (13:24)
--- NOTE | 2018-02-11 13:31 | UC ---
General HPI - HPI Summary HPI Summary: Pt presents with c/o of nausea and elevated blood glucose that he "hasn't been able to get control of his sugar". Pt is a type 1 diabetic since age 7. Pt states he was having difficulty with low blood sugar last evening and now feels nauseous and unable to "keep anything down". P treports that at home BG were in 400 range. - History of Current Complaint Chief Complaint: UCGeneralIllness Stated Complaint: GLUCOSE COMPLAINT (TYPE 1 DIABETIC) Time Seen by Provider: 02/11/18 13:09 Hx Obtained From: Patient Onset/Duration: Sudden Onset Timing: Constant Onset Severity: Mild Current Severity: Moderate Pain Intensity: 8 Associated Signs & Symptoms: Positive: Decreased Oral Intake - Allergy/Home Medications Allergies/Adverse Reactions: Allergies Allergy/AdvReac Type Severity Reaction Status Date / Time cefaclor [From Ceclor] Allergy Hives Verified 02/11/18 13:03 Penicillins Allergy Anaphylatic Verified 02/11/18 13:03 Shock Home Medications: Home Medications Acetaminophen [Acetaminophen Extra Strength] 1,000 mg PO Q6H PRN 02/11/18 [ History Confirmed 02/11/18] hydroCHLOROthiazide [Hydrochlorothiazide] 12.5 mg PO ONCE 02/11/18 [History Confirmed 02/11/18] PMH/Surg Hx/FS Hx/Imm Hx Previously Healthy: Yes Endocrine History: Diabetes - Surgical History Surgical History: None - Family History Known Family History: Positive: Cardiac Disease, Hypertension, Diabetes - Social History Occupation: Employed Full-time Lives: With Family Alcohol Use: None Substance Use Type: Marijuana Substance Use Comment - Amount & Last Used: Daily & 02/10/18 Smoking Status (MU): Light Every Day Tobacco Smoker Type: Cigarettes Amount Used/How Often: 5 cigarettes/week Length of Time of Smoking/Using Tobacco: 11 YRS Have You Smoked in the Last Year: Yes When Did the Patient Quit Smoking/Using Tobacco: QUIT NOVEMBER 2015 - Immunization History Most Recent Influenza Vaccination: none Review of Systems Constitutional: Fatigue Skin: Negative Eyes: Negative ENT: Negative Respiratory: Negative Cardiovascular: Negative Gastrointestinal: Vomiting, Nausea Genitourinary: Negative Motor: Negative Neurovascular: Negative Musculoskeletal: Negative Neurological: Headache Psychological: Negative Is Patient Immunocompromised?: No All Other Systems Reviewed And Are Negative: Yes Physical Exam Triage Information Reviewed: Yes Appearance: Ill-Appearing Vital Signs: Initial Vital Signs Temp 98.6 F 02/11/18 13:00 Pulse 92 02/11/18 13:00 Resp 16 02/11/18 13:00 BP 131/84 02/11/18 13:00 Pulse Ox 100 02/11/18 13:00 Vital Signs Reviewed: Yes Eye Exam: Normal ENT Exam: Normal Dental Exam: Normal Neck exam: Normal Respiratory Exam: Normal Cardiovascular Exam: Normal Musculoskeletal Exam: Normal Neurological Exam: Normal Psychological Exam: Normal Skin Exam: Normal Diagnostics - Laboratory Diagnostic Studies Completed/Ordered: UC fingerstick BG, out of range.so, greater than 400 Course/Dx - Course Course Of Treatment: I discussed with the pt the need to follow up with his PCP as soon as possible and if symptoms do not imporve the need to go to closest ER. Pt verbalized understanding and agreed to plan of eduard. - Differential Dx - Multi-Symptom Provider Diagnoses: nausea. hyperglycemia Discharge - Sign-Out/Discharge Documenting (check all that apply): Patient Departure - Discharge Plan Condition: Stable Disposition: HOME Prescriptions: Ondansetron HCl [Zofran] 8 mg PO Q8H PRN #15 tablet PRN Reason: Nausea Patient Education Materials: Managing Diabetes During Sick Days (ED), Acute Nausea and Vomiting (ED), Diabetic Hyperglycemia (ED) Forms: *Work Release Referrals: Marcos Burkett, DO [Primary Care Provider] - As Soon As Possible Additional Instructions: Please follow up as soon as possible with your PCP. If your symptoms do not improve, please seek care at the closest emergency room as soon as possible. Per institutional requirements, I have reviewed the chart, however, I was not consulted specifically or made aware of this patient by the above midlevel provider. I did not personally evaluate, interact with , or disposition this patient. - Billing Disposition and Condition Condition: STABLE Disposition: Home
== END 2018-02-11 13:41 | disposition home or self-care (01) ==
LOC: UCCORT 12:48
DX: R11.0 Nausea (principal); E10.65 Type 1 diabetes mellitus with hyperglycemia; Z88.1 Allergy status to other antibiotic agents; Z88.0 Allergy status to penicillin; Z87.891 Personal history of nicotine dependence
CPT/HCPCS: 99212; A9270-GY; G0463

== ENCOUNTER 2018-04-13 15:50 | Emergency (ER) | payer OTHER ==
[2018-04-13 16:26] VITALS: BP 147/85
--- NOTE | 2018-04-13 16:47 | UC ---
Skin Complaint HPI - HPI Summary HPI Summary: 32-year-old male comes in with painful lump in his left axilla. Started couple days ago and is gotten worse. He recently had an abscess in his left axilla incised and drained. It is adjacent to the new lump. He is not on antibiotics he doesn't have fever. He is a type I diabetic. He does shave his armpit here for the incision and drainage of the other abscess and he wonders if this encourage this abscess developing. - History of Current Complaint Chief Complaint: UCSkin Time Seen by Provider: 04/13/18 16:35 Stated Complaint: SKIN ISSUE Pain Intensity: 8 - Allergy/Home Medications Allergies/Adverse Reactions: Allergies Allergy/AdvReac Type Severity Reaction Status Date / Time cefaclor [From [facility]] Allergy Hives Verified 04/13/18 16:17 Penicillins Allergy Anaphylatic Verified 04/13/18 16:17 Shock Home Medications: Home Medications Ibuprofen TAB* [Advil TAB*] 800 mg PO Q6H PRN 04/13/18 [History Confirmed ] Review of Systems Constitutional: Negative Skin: Other - See history present illness Eyes: Negative ENT: Negative Respiratory: Negative Cardiovascular: Negative Gastrointestinal: Negative Motor: Negative Neurovascular: Negative Musculoskeletal: Negative Neurological: Negative Psychological: Negative Is Patient Immunocompromised?: No All Other Systems Reviewed And Are Negative: Yes PMH/Surg Hx/FS Hx/Imm Hx Endocrine History: Diabetes - Surgical History Surgical History: None - Family History Known Family History: Positive: Cardiac Disease, Hypertension, Diabetes - Social History Alcohol Use: None Substance Use Type: Marijuana Substance Use Comment - Amount & Last Used: daily Smoking Status (MU): Current Some Day Smoker Type: Cigarettes Amount Used/How Often: 3 cigarettes/week Length of Time of Smoking/Using Tobacco: 11 YRS Have You Smoked in the Last Year: Yes When Did the Patient Quit Smoking/Using Tobacco: QUIT NOVEMBER 2015 - Immunization History Most Recent Influenza Vaccination: none Physical Exam Triage Information Reviewed: Yes Appearance: Well-Appearing, No Pain Distress, Well-Nourished Vital Signs: Initial Vital Signs Temp 98 F 04/13/18 16:20 Pulse 89 04/13/18 16:20 Resp 22 04/13/18 16:20 BP 147/85 04/13/18 16:20 Pulse Ox 100 04/13/18 16:20 Vital Signs Reviewed: Yes Eye Exam: Normal Eyes: Positive: Conjunctiva Clear Neck exam: Normal Neck: Positive: Supple Respiratory: Positive: No respiratory distress Musculoskeletal: Positive: Strength Intact, ROM Intact Neurological Exam: Normal Neurological: Positive: Alert, Muscle Tone Normal Psychological Exam: Normal Psychological: Positive: Normal Response To Family Skin: Positive: Other - In the left axilla there is a 1 cm subcutaneous tender swelling. It is not erythematous. There is no wihte head. Course/Dx - Course Course Of Treatment: The abscess was not large enough at this time for incision and drainage. We'll start the patient on clindamycin. Patient should get rechecked if the area gets bigger or worse. Follow-up with primary care doctor. Recheck here sooner as needed - Diagnoses Provider Diagnoses: LEFT AXILLARY FOLLICULIAR ABCESS Discharge - Sign-Out/Discharge Documenting (check all that apply): Patient Departure All imaging exams completed and their final reports reviewed: No Studies - Discharge Plan Condition: Stable Disposition: HOME Prescriptions: Clindamycin Cap(NF) [Clindamycin Cap 300 mg Cap(NF)] 300 mg PO Q6H #40 cap Patient Education Materials: Abscess (ED) Referrals: Marcos Burkett DO [Primary Care Provider] - Additional Instructions: FOLLOW UP WITH YOUR DOCTOR. GET RECHECKED FOR ANY WORSENING OF YOUR CONDITION OR QUESTIONS OR CONCERNS. - Billing Disposition and Condition Condition: STABLE Disposition: Home
== END 2018-04-13 16:52 | disposition home or self-care (01) ==
LOC: UCCORT 15:50
DX: L02.412 Cutaneous abscess of left axilla (principal); Z88.1 Allergy status to other antibiotic agents; Z88.0 Allergy status to penicillin; Z87.891 Personal history of nicotine dependence
CPT/HCPCS: 99212; G0463

== ENCOUNTER 2018-09-01 18:40 | Emergency (ER) | payer OTHER ==
--- NOTE | 2018-09-01 18:56 | UC ---
FLU HPI - HPI Summary HPI Summary: 33 yo male presents with fever, body aches, and fatigue since yesterday. He has been taking ibuprofen with mild relief. Sleeping a lot. Has a decreased appetite. Has had sick contacts with the flu. Denies SOB, chest pain, abdominal pain, vomiting, diarrhea. - History of Current Complaint Stated Complaint: FEVER/BODY ACHES/COUGH Time Seen by Provider: 09/01/18 18:56 Hx Obtained From: Patient Onset/Duration: Sudden Onset Severity Currently: Severe Severity Initially: Severe Pain Intensity: 10 Pain Scale Used: 0-10 Numeric - Allergy/Home Medications Allergies/Adverse Reactions: Allergies Allergy/AdvReac Type Severity Reaction Status Date / Time cefaclor [From [facility]] Allergy Hives Verified 04/13/18 16:17 Penicillins Allergy Anaphylatic Verified 04/13/18 16:17 Shock PMH/Surg Hx/FS Hx/Imm Hx Endocrine History: Diabetes - Surgical History Surgical History: None - Family History Known Family History: Positive: Cardiac Disease, Hypertension, Diabetes - Social History Occupation: Employed Full-time Lives: With Family Alcohol Use: None Substance Use Type: Marijuana Substance Use Comment - Amount & Last Used: daily Smoking Status (MU): Current Some Day Smoker Type: Cigarettes Amount Used/How Often: 3 cigarettes/week Length of Time of Smoking/Using Tobacco: 11 YRS Have You Smoked in the Last Year: Yes When Did the Patient Quit Smoking/Using Tobacco: QUIT NOVEMBER 2015 - Immunization History Most Recent Influenza Vaccination: none Review of Systems All Other Systems Reviewed And Are Negative: Yes Constitutional: Positive: Fever, Chills, Fatigue, Other - Body aches Skin: Positive: Negative Eyes: Positive: Negative ENT: Positive: Negative Respiratory: Positive: Negative Cardiovascular: Positive: Negative Gastrointestinal: Positive: Negative Neurovascular: Positive: Negative Neurological: Positive: Negative Psychological: Positive: Negative Physical Exam - Summary Physical Exam Summary: GENERAL: NAD. WDWN. No pain distress. SKIN: No rashes, sores, lesions, or open wounds. HEENT: Head: AT/NC Eyes: EOM intact. Conjunctiva clear without inflammation or discharge. Ears: Hearing grossly normal. TMs intact, no bulging, erythema, or edema. Nose: Nasal mucosa pink and moist. NTTP maxillary and frontal sinus. Throat: Posterior oropharynx without exudates, erythema, or tonsillar enlargement. Uvula midline. NECK: Supple. Nontender. No lymphadenopathy. CHEST: CTAB. No r/r/w. No accessory muscle use. Breathing comfortably and in no distress. CV: RRR. Without m/r/g. Pulses intact. Cap refill <2seconds NEURO: Alert. PSYCH: Age appropriate behavior. Triage Information Reviewed: Yes Vital Signs: Vital Signs: Temp Pulse Resp BP Pulse Ox 98 F 105 18 123/77 100 09/01/18 18:56 09/01/18 18:56 09/01/18 18:56 09/01/18 18:56 09/01/18 18:56 Laboratory Tests 09/01/18 18:58 Influenza A (Rapid) Positive A Vital Signs Reviewed: Yes Flu Course/Dx - Course Course Of Treatment: POC flu positive. Advised to rest, drink fluids, and take tylenol/ibuprofen for discomfort. - Differential Dx/Diagnosis Provider Diagnosis: Influenza Discharge - Sign-Out/Discharge Documenting (check all that apply): Patient Departure All imaging exams completed and their final reports reviewed: No Studies - Discharge Plan Condition: Stable Disposition: HOME Patient Education Materials: Influenza (DC) Referrals: Naina Sanchez PA [Primary Care Provider] - Additional Instructions: If you develop a fever, shortness of breath, chest pain, new or worsening symptoms - please call your PCP or go to the ED. May take tylenol/ibuprofen for your fever and discomfort - Billing Disposition and Condition Condition: STABLE Disposition: Home - Attestation Statements Provider Attestation: Per institutional requirements, I have reviewed the chart, however, I was not consulted specifically or made aware of this patient by the midlevel provider. I did not personally evaluate, interact with , or disposition this patient.
[2018-09-01 19:00] VITALS: BP 123/77
[2018-09-01 19:02] LABS: Influenza A Molecular POSITIVE (Negative)
== END 2018-09-01 19:12 | disposition home or self-care (01) ==
LOC: UCCORT 18:40
DX: J11.1 Influenza due to unidentified influenza virus with other respiratory manifestations (principal); E11.9 Type 2 diabetes mellitus without complications; F17.210 Nicotine dependence, cigarettes, uncomplicated; Z88.0 Allergy status to penicillin; Z88.1 Allergy status to other antibiotic agents
CPT/HCPCS: 99211; G0463

== ENCOUNTER 2019-03-31 12:57 | Emergency (ER) | payer OTHER ==
[2019-03-31 16:06] VITALS: BP 153/97
--- NOTE | 2019-03-31 16:36 | ED ---
Skin Complaint - HPI Summary HPI Summary: this patient is a 33-year-old type I diabetic male presenting to the ED with bilateral lower extremity edema and bilateral axillary erythematous small nodules representing very small abscesses. He states he has had this in the past, however not this frequent. He was seen yesterday at the emergency room in [place] and given clindamycin. He has not been taking any ibuprofen or Tylenol. He states he has been otherwise well, denies any fevers, sweats, chills. Denies any abdominal pain. Denies any pain to the area. He states he feels there is improving, however is been more concerned over his bilateral lower extremity edema. He does state he has had this in the past and was given a water pill which helped it. He's never been in renal failure in the past. - History of Current Complaint Chief Complaint: EDGeneral Time Seen by Provider: 03/31/19 14:08 Stated Complaint: BUMPS ALL OVER ANKLE SWELLING Hx Obtained From: Patient Onset/Duration: Started Hours Ago Skin Exposure Onset/Duration: Hours Ago Timing: Constant Onset Severity: Moderate Current Severity: Moderate Pain Intensity: 2 Pain Scale Used: 0-10 Numeric Aggravating Symptom(s): Nothing Alleviating Symptom(s): Nothing Associated Signs & Symptoms: Negative - Allergy/Home Medications Allergies/Adverse Reactions: Allergies Allergy/AdvReac Type Severity Reaction Status Date / Time cefaclor [From [facility]] Allergy Hives Verified 04/13/18 16:17 Home Medications: Home Medications Clindamycin Cap(NF) [Clindamycin Cap 300 mg Cap(NF)] 300 mg PO Q6H 03/31/19 [ History Confirmed 03/31/19] PMH/Surg Hx/FS Hx/Imm Hx Previously Healthy: Yes Endocrine/Hematology History: Reports: Hx Diabetes - Type I Denies: Hx Thyroid Disease Cardiovascular History: Denies: Hx Hypertension Respiratory History: Reports: Hx Asthma Denies: Hx Chronic Obstructive Pulmonary Disease (COPD) GI History: Denies: Hx Ulcer Neurological History: Reports: Hx Peripheral Neuropathy - Immunization History Hx Pertussis Vaccination: No Immunizations Up to Date: Yes Infectious Disease History: No Infectious Disease History: Denies: Hx Clostridium Difficile, Hx Hepatitis, Hx Human Immunodeficiency Virus (HIV), Hx of Known/Suspected MRSA, Hx Shingles, Hx Tuberculosis, Hx Known/ Suspected VRE, Hx Known/Suspected VRSA, History Other Infectious Disease, Traveled Outside the [place] in Last 30 Days - Family History Known Family History: Positive: Cardiac Disease, Hypertension, Diabetes, Non- Contributory - Social History Occupation: Employed Full-time Lives: With Family Alcohol Use: None Hx Substance Use: Yes Substance Use Type: Reports: Marijuana Substance Use Comment - Amount & Last Used: daily Hx Tobacco Use: Yes Smoking Status (MU): Former Smoker Type: Cigarettes Amount Used/How Often: 3 cigarettes/week Length of Time of Smoking/Using Tobacco: 11 YRS Have You Smoked in the Last Year: Yes Review of Systems Constitutional: Negative Negative: Fever, Chills, Fatigue, Skin Diaphoresis Negative: Palpitations, Chest Pain Negative: Shortness Of Breath, Cough Genitourinary: Negative Positive: no symptoms reported, see HPI Positive: Edema - bilaterally. Negative: Arthralgia, Myalgia Positive: Other - erythematous enlarged nodules to the axillary area respresenting abscesses Negative: Headache, Weakness All Other Systems Reviewed And Are Negative: Yes Physical Exam Triage Information Reviewed: Yes Vital Signs On Initial Exam: Initial Vitals Temp Pulse Resp BP Pulse Ox 97 F 80 16 163/98 100 03/31/19 13:01 03/31/19 13:01 03/31/19 13:01 03/31/19 13:01 03/31/19 13:01 Vital Signs Reviewed: Yes Appearance: Positive: No Pain Distress, Well-Nourished Skin: Positive: Skin Color Reflects Adequate Perfusion, Other - see HPI Eyes: Positive: EOMI, CHAPIS, Conjunctiva Clear Neck: Positive: Supple, No Lymphadenopathy Respiratory/Lung Sounds: Positive: Clear to Auscultation, Breath Sounds Present Cardiovascular: Positive: RRR, Pulses are Symmetrical in both Upper and Lower Extremities Musculoskeletal: Positive: Strength/ROM Intact, Edema Left, Edema Right Neurological: Positive: Speech Normal Psychiatric: Positive: Affect/Mood Appropriate AVPU Assessment: Alert Diagnostics - Vital Signs Vital Signs Temp Pulse Resp BP Pulse Ox 03/31/19 16:10 97.3 F 76 20 153/97 100 03/31/19 16:00 75 100 03/31/19 15:58 75 153/97 100 03/31/19 15:00 82 98 03/31/19 14:58 77 135/86 100 03/31/19 14:28 76 145/89 100 03/31/19 14:27 74 99 09/13/19 13:01 97 F 80 16 163/98 100 - Laboratory Lab Statement: Any lab studies that have been ordered have been reviewed, and results considered in the medical decision making process. Course/Dx - Course Course Of Treatment: During his course of treatment the patient is evaluated for lower extremity edema as well as small erythematous nodules to the axillary areas. Patient appears otherwise well. Currently on clindamycin. Physical examination, there. Small nodules presenting with a small abscesses to the bilateral axillary areas. Denies urinary symptoms. Patient is requesting something for his bilateral lower extremity edema. He does have 1+ pitting edema bilaterally. Denies any back pain. He is given hydrochlorothiazide 12.5 once daily and will follow up with his PCP. - Differential Diagnoses - Skin Complaint Differential Diagnoses: Other - lower ext edema, renal failure - Diagnoses Provider Diagnoses: Leg edema, Abscess Discharge ED - Sign-Out/Discharge Documenting (check all that apply): Patient Departure Patient Received Moderate/Deep Sedation with Procedure: No - Discharge Plan Condition: Stable Disposition: HOME Patient Education Materials: Leg Edema (ED) Forms: *Work Release Referrals: Naina Sanchez PA [Primary Care Provider] - Additional Instructions: Please continue clindamycin as prescribed Hydrochlorothiazide 1/2 tab (12.5) daily x 7 days Please follow up with your PCP 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
[2019-04-03] MEDS ORDERED: Insulin GLARGINE(*) 1 UNITS UNIT SUBCUT ONE (17:52)
== END 2019-03-31 16:08 | disposition home or self-care (01) ==
LOC: ED 12:57
DX: R60.0 Localized edema (principal); L02.412 Cutaneous abscess of left axilla; L02.411 Cutaneous abscess of right axilla; E10.9 Type 1 diabetes mellitus without complications; Z87.891 Personal history of nicotine dependence
CPT/HCPCS: 99282

== ENCOUNTER 2019-08-24 12:01 | Emergency (ER) | payer OTHER ==
--- OUTSIDE RECORDS SUMMARY | 2019-08-24 12:07 | XMS REPORT | Continuity of Care Document ---
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 [phone] Problems Active Problems Provider Date Type 1 diabetes mellitus uncontrolled Naina Sanchez PA Onset: 05/18/2018 Anxiety state Naina Sanchez PA Onset: 05/18/2018 Tension-type headache Naina Sanchez PA Onset: 05/18/2018 Psychogenic impotence Naina Sanchez PA Onset: 05/18/2018 Tobacco use Naina Sanchez PA Onset: 05/18/2018 Essential hypertension Naina Sanchez PA Onset: 05/31/2019 Type 1 diabetes mellitus with diabetic Naina Sanchez PA Onset: 05/31/2019 polyneuropathy Social History Type Date Description Comments Sex Unknown ETOH Use Denies alcohol use Recreational Drug Use Marijuana Tobacco Use Start: Unknown End: Patient is a former smoker Smoking Status Reviewed: 07/31/19 Patient is a former smoker Allergies, Adverse Reactions, Alerts Active Allergies Reaction Severity Comments Date Cefaclor 05/18/2018 Medications Active Medications SIG Qnty Indications Ordering Date Provider Cymbalta 1 tab by mouth 30caps F43.23 Alesia Mills, 07/31/[address] every day at MD Part bedtime Naproxen 1 tabs by mouth 60tabs S46.012A Alesia Mills, 07/31/2019 375mg Tablets twice a day with MD food for pain. Doxycycline Hyclate take 1 tablet by 20tabs L03.116 Alesia Mills, 2019 mouth every 12 MD 100mg Tablets hours for 10 days for infection Gabapentin 1 tab by mouth 120caps Alesia Mills, 06/21/2019 300mg morning and MD Capsules afternoon, 2 at bedtime. Alclometasone twice a day as 45gm L20.9 Alesia Mills, 05/31/2019 Dipropionate needed for up to MD 0.05% 14 days. Ointment Sildenafil Citrate 2 tab by mouth as 30tabs F52.21 Alesia Mills, 2018 20mg directed for ed MD Tablets Rosuvastatin Calcium take 1 tablet by 30tabs E10.42 Alesia Mills, 2018 mouth every day at MD 5mg Tablets bedtime Lisinopril 1 by mouth every 30tabs L20.9 Alesia Mills, 05/31/2019 5mg Tablets day MD Admelog 0.9 sc midnight to 30ml E10.65 Alesia Mills, 04/05/2019 100Unit/ML 0700, 1.15 0700 to MD Solution midnight Cartridges for continuous pump History Medications Gabapentin Take One Capsule By 120caps Alesia Mills, 05/05/2019 - 100mg Mouth Three Times A MD 06/21/2019 Capsules Day For Neuropathic Pain, Increase Dose To 3 Capsules Three Times A Day as Tolerated Immunizations CPT Code Status Date Vaccine Lot # [id number] Given 05/31/2019 Influenza Virus Vaccine, Quadrivalent, 36 Mos+, [id number] Vital Signs Date Vital Result Comment 07/31/2019 1:54pm BP Systolic 120 mmHg BP Diastolic 68 mmHg Body Temperature 97.5 F Heart Rate 79 /min Respiratory Rate 18 /min Height 69.5 inches 5'9.50" Weight 186.25 lb BMI (Body Mass Index) 27.1 kg/m2 BSA (Body Surface Area) 2.01 m2 [place] body weight in kilograms 74 kg O2 % BldC Oximetry 98 % 05/31/2019 2:48pm BP Systolic 140 mmHg BP Diastolic 78 mmHg BP Systolic Sitting Right Arm 145 mmHg after 10 minutes. BP Diastolic Sitting Right Arm 72 mmHg after 10 minutes. Body Temperature 97.6 F Heart Rate 92 /min Respiratory Rate 18 /min Height 69.5 inches 5'9.50" Weight 182.25 lb BMI (Body Mass Index) 26.5 kg/m2 BSA (Body Surface Area) 2.00 m2 [place] body weight in kilograms 74 kg O2 % BldC Oximetry 98 % Results Test Acquired Date Facility Test Result H/L Range Note CBC 04/06/[address] [facility] [address] White Blood 5.4 K/uL Normal 3.4-10.5 1 W/Automated [address] [place] [address] [phone] Red Blood Count 4.76 M/uL Normal 4.20-5.80 Hemoglobin 13.4 gm/dL Normal 12.8-17.0 Hematocrit 39.8 % Normal 38.0-48.0 Mean Cell Volume 83.6 fl Normal 80.0-96.0 Mean Corpuscular HGB 28.2 pg Normal 27.0-33.0 Mean Corpuscular HGB Conc 33.7 g/dL Normal 31.7-36.0 Platelet Count 221 K/uL Normal 155-360 Red Cell Distri Width SD 42.3 fl Normal 36-51 Red Cell Distri Width %CV 13.9 % Normal 11.6-15.8 Mean Platelet Volume 11.4 fl High 6.6-10.6 Neut% 54.0 % Normal 33.0-73.0 Lymph % 31.2 % Normal 20.0-42.0 [place]he % 9.5 % Normal 0.0-10.0 Eo% 2.4 % Normal 0.0-6.6 Bas% 0.9 % Normal 0.0-1.1 Immature Grans 2.0 % Normal 0.0-5.0 NRBC % 0.0 /100WBC < 10/ 100 WBC Neut# 2.91 K/uL Normal 1.8-7.0 Lymph # 1.68 K/uL Normal 1.0-4.0 Ashe # 0.51 K/uL Normal 0.0-0.8 Eos # 0.13 K/uL Normal 0.0-0.5 Baso # 0.05 K/uL Normal 0.0-0.1 Immature Grans Absolute 0.11 K/uL NRBC # 0.00 K/uL Comprehensive Metabolic 04/06/[address] [facility] [address] Glucose 239 mg/dL High 74-[address] [place], [place] [id number] [phone] BUN 13 mg/dL Normal 7-18 Creatinine 1.0 mg/dL Normal 0.6-1.3 Glom Filtration Rate, Estimate >60 mL/min >60 If >60 mL/min >60 2 BUN/Creat 13.0 ratio Sodium 139 mmol/L Normal 136-145 Potassium 4.0 mmol/L Normal 3.5-5.1 Chloride 102 mmol/L Normal 98-107 Carbon Dioxide 33 mmol/L High 21-32 Anion Gap 4 mEq/L Low 8-16 Calcium 8.7 mg/dL Normal 8.5-10.1 Total Protein 6.7 g/dL Normal 6.4-8.2 Albumin 3.7 g/dL Normal 3.4-5.0 Globulin 3.0 g/dL Normal 1.9-4.3 Alb/Glob 1.2 ratio Bilirubin,Total 0.5 mg/dL Normal 0.2-1.0 Sgot/Ast 25 U/L Normal 15-37 SGPT/Alt 45 U/L Normal 12-78 Alkaline Phosphatase 106 U/L Normal 45-117 Reflex add FT3? Y Reflex add FT4? Y Glycohemoglobin 04/06/[email or web address] Glycohemoglobin 9.8 % High 4.2-6.3 [address] (A1c) [place], [place] [id number] [phone] eAG 235 mg/dL LDL Cholesterol Profile 04/06/[email or web address] Cholesterol 137 mg/dL <[address] [place], [place] [id number] [phone] Triglycerides 45 mg/dL <150 5 HDL Cholesterol 50 mg/dL >40 6 LDL-Cholesterol 78 mg/dL < 100 7 Reflex add FT3? Y Reflex add FT4? Y TSH Reflex 04/06/[email or web address] Thyroid Stim 1.79 uIU/mL Normal 0.30-4.20 FT4 And/Or [address] Hormone FT3 [place], [place] [id number] [phone] Reflex add FT3? Y Reflex add FT4? Y Urine Dipstick 04/05/2019 [facility] Ua Color yellow Yellow Ua Clarity clear Clear Ua Leuko negative Negative Ua Nitrite negative Negative Ua Urobilinogen 3.5 High 0.2 - 1.0 E.U./dL Ua Protein negative Negative Ua PH 6.0 Low 6.5-7.5 Ua Blood negative Negative Ua Specific [place] 1.020 1.010-1.030 Ua Ketones 0.5 High Negative Ua Bilirubin negative Negative Ua Glucose 60 High Negative Microalbumin,Random 04/05/[address] [facility] [address] Microalbumin,Urine 8.4 < 20.[address] mg/[place] [address] [phone] Blood Culture 03/27/2019 [facility] Blood Culture NO 8, [address] Aerobic GROWTH: 9 [place] [address] FINAL [phone] <SEE NOTE> Blood Culture Anaerobic NO GROWTH: FINAL <SEE NOTE> 10 Influenza A/B 03/27/2019 [facility] Influenza A Negative (Negative) Antigen [address] [place] [address] [phone] Influenza B Antigen Negative (Negative) 11 Comprehensive Metabolic 03/27/2019 [facility] Glucose 204 mg/dL High 74-[address] [place] [address] [phone] BUN 11 mg/dL Normal 7-18 Creatinine 1.1 mg/dL Normal 0.6-1.3 Glom Filtration Rate, Estimate >60 mL/min >60 If >60 mL/min >60 12 BUN/Creat 10.0 ratio Sodium 137 mmol/L Normal 136-145 Potassium 3.5 mmol/L Normal 3.5-5.1 Chloride 102 mmol/L Normal 98-107 Carbon Dioxide 30 mmol/L Normal 21-32 Anion Gap 5 mEq/L Low 8-16 Calcium 9.1 mg/dL Normal 8.5-10.1 Total Protein 7.7 g/dL Normal 6.4-8.2 Albumin 3.8 g/dL Normal 3.4-5.0 Globulin 3.9 g/dL Normal 1.9-4.3 Alb/Glob 1.0 ratio Bilirubin,Total 1.5 mg/dL High 0.2-1.0 Sgot/Ast 17 U/L Normal 15-37 SGPT/Alt 32 U/L Normal 12-78 Alkaline Phosphatase 98 U/L Normal 45-117 CBC W/Automated 03/27/2019 [facility] White Blood 9.9 K/uL Normal 3.4-10.[address] [place] [address] [phone] Red Blood Count 5.36 M/uL Normal 4.20-5.80 Hemoglobin 15.2 gm/dL Normal 12.8-17.0 Hematocrit 43.5 % Normal 38.0-48.0 Mean Cell Volume 81.2 fl Normal 80.0-96.0 Mean Corpuscular HGB 28.4 pg Normal 27.0-33.0 Mean Corpuscular HGB Conc 34.9 g/dL Normal 31.7-36.0 Platelet Count 182 K/uL Normal 155-360 Red Cell Distri Width SD 39.6 fl Normal 36-51 Red Cell Distri Width %CV 13.7 % Normal 11.6-15.8 Mean Platelet Volume 11.9 fl High 6.6-10.6 Neut% 76.1 % High 33.0-73.0 Lymph % 13.6 % Low 20.0-42.0 Ashe % 8.9 % Normal 0.0-10.0 Eo% 0.5 % Normal 0.0-6.6 Bas% 0.4 % Normal 0.0-1.1 Immature Grans 0.5 % Normal 0.0-5.0 NRBC % 0.0 /100WBC < 10/ 100 WBC Neut# 7.51 K/uL High 1.8-7.0 Lymph # 1.34 K/uL Normal 1.0-4.0 [place]he # 0.88 K/uL High 0.0-0.8 Eos # 0.05 K/uL Normal 0.0-0.5 Baso # 0.04 K/uL Normal 0.0-0.1 Immature Grans Absolute 0.05 K/uL NRBC # 0.00 K/uL Lactic Acid 03/27/2019 [facility] Lactic Acid 1.4 mmol/L Normal 0.4-1.[address] [place] [address] [phone] Lab Reflex >2.0 for Sepsis? Y Blood Culture 03/27/2019 [facility] Blood Culture NO GROWTH: FINAL [address] Aerobic <SEE NOTE> [place] [address] [phone] Blood Culture Anaerobic NO GROWTH: FINAL <SEE NOTE> 15 1 E10.65 2 Note: Persistent reduction for 3 months or more in an eGFR <60 mL/min/1.73 m2 defines CKD. Patients with eGFR values >/=60 mL/min/1.73 m2 may also have CKD if evidence of persistent proteinuria is present. The original MDRD equation for estimated GFR is not valid for patients less than 18 years of age. Additional information may be found at www.kdoqi.org. 3 Elevated levels of HbA1c suggest the need for more aggressive treatment of glycemia. The [place] [employer] recommends that a primary goal of therapy should be a HbA1c of <7% and that physicians should re-evaluate the treatment regimen in patients with HbA1c values consistently >8%. 4 Reference Guidelines*: Desirable: ........... < 200 mg/dL Borderline High: ..... 200-239 mg/dL High: ................ >= 240 mg/dL * The National Cholesterol Education Program (NCEP) 5 Reference Guidelines*: Normal: ............. < 150 mg/dL Borderline High: .... 150-199 mg/dL High: ............... 200-499 mg/dL Very High: .......... > 500 mg/dL * Source: National Cholesterol Education Program (NCEP) 6 Reference Guidelines*: Low HDL: ..... < 40 mg/dL Normal: ..... 40-60 mg/dL Desirable: ... > 60 mg/dL *The National Cholesterol Education Program(NCEP) 7 Reference Guidelines*: Optimal:........... <100 mg/dL Near Optimal....... 100-129 mg/dL Borderline High.... 130-159 mg/dL High............... 160-189 mg/dL Very High.......... >=190 mg/dL * Source: National Cholesterol Education Program (NCEP) 8 BOILS IN ARMPIT, FLU-LIKE SYMPTOMS 9 NO GROWTH: FINAL REPORT 10 NO GROWTH: FINAL REPORT 11 Please Note: A POSITIVE result for influenza A and/or B antigen does not rule out a co-infection with other pathogens or identify any specific influenza A virus subtype. A NEGATIVE result for influenza A and/or B antigen does not preclude influenza virus infection and should not be the sole basis for treatment or other management decisions, since the antigen present in the specimen may be below the detection limit of the test. A NEGATIVE result is PRESUMPTIVE and it is recommended these results be confirmed by virus culture or an FDA-cleared influenza A and B molecular assay. Method: BD Veritor Chromatographic immunoassay 12 Note: Persistent reduction for 3 months or more in an eGFR <60 mL/min/1.73 m2 defines CKD. Patients with eGFR values >/=60 mL/min/1.73 m2 may also have CKD if evidence of persistent proteinuria is present. The original MDRD equation for estimated GFR is not valid for patients less than 18 years of age. Additional information may be found at www.kdoqi.org. 13 Specimen slightly Hemolyzed, interpret with caution 14 NO GROWTH: FINAL REPORT 15 NO GROWTH: FINAL REPORT Procedures Date Code Description Status 06/06/2019 39580 Retina Completed 06/06/2019 00219 Eye Exam Est Patient Comprehensive Completed 05/02/2019 36513 Eye Exam New Patient Comprehensive Completed Medical Devices Description No Information Available Encounters Type Date Location Provider Dx Diagnosis Office Visit 07/31/2019 [facility] Naina Lujan, E10.42 Type 1 diabetes 1:[address] [place] mellitus with diabetic polyneuropathy I10 Essential (primary) hypertension L03.116 Cellulitis of left lower limb S46.012A Strain of musc/tend the rotator cuff of left shoulder, init F43.23 Adjustment disorder with mixed anxiety and depressed mood Office Visit 05/31/2019 3:00p Naina Guzmán, I10 Essential (primary) [address] [place] hypertension E10.42 Type 1 diabetes mellitus with diabetic polyneuropathy L20.9 Atopic dermatitis, unspecified F52.21 Male erectile disorder Z23 Encounter for immunization Office Visit 04/05/2019 4:45p Naina Guzmán, E10.65 Type [address] [place] mellitus with hyperglycemia L03.90 Cellulitis, unspecified E10.42 Type 1 diabetes mellitus with diabetic polyneuropathy R60.0 Localized edema F17.211 Nicotine dependence, cigarettes, in remission Z91.120 Pt intentl undrdose of meds regimen due to financl hardship Assessments Date Code Description Provider 07/31/2019 E10.42 Type 1 diabetes mellitus with diabetic Naina Sanchez PA polyneuropathy 07/31/2019 I10 Essential (primary) hypertension Naina Sanchez PA 07/31/2019 L03.116 Cellulitis of left lower limb Naina Sanchez PA 07/31/2019 S46.012A Strain of muscle(s) and tendon(s) of the Naina Sanchez PA rotator cuff of left shoulder, initial encounter 07/31/2019 F43.23 Adjustment disorder with mixed anxiety and Naina Sanchez PA depressed mood 06/06/2019 E11.3493 Type 2 diabetes mellitus with severe Marcos East MD nonproliferative diabetic retinopathy without macular edema, bilateral 05/31/2019 I10 Essential (primary) hypertension Naina Sanchez PA 05/31/2019 E10.42 Type 1 diabetes mellitus with diabetic Naina Sanchez PA polyneuropathy 05/31/2019 L20.9 Atopic dermatitis, unspecified Naina Sanchez PA 05/31/2019 F52.21 Male erectile disorder Naina Sanchez PA 05/31/2019 Z23 Encounter for immunization Naina Sanchez PA 05/02/2019 E11.3493 Type 2 diabetes mellitus with severe Marcos East MD nonproliferative diabetic retinopathy without macular edema, bilateral 04/05/2019 E10.65 Type 1 diabetes mellitus with hyperglycemia Naina Sanchez PA 04/05/2019 L03.90 Cellulitis, unspecified Naina Sanchez PA 04/05/2019 E10.42 Type 1 diabetes mellitus with diabetic Naina Sanchez PA polyneuropathy 04/05/2019 R60.0 Localized edema Naina Sanchez PA 04/05/2019 F17.211 Nicotine dependence, cigarettes, in remission Naina Sanchez PA 04/05/2019 Z91.120 Patient's intentional underdosing of medication Naina Sanchez PA regimen due to financial hardship Plan of Treatment Future Appointment(s):09/05/2019 10:30 am - Naina Sanchez PA at [facility] RD12/05/2019 10:00 am - Marcos East MD at Ophthalmology Functional Status Description No Information Available Mental Status Description No Information Available Referrals Refer to Dr Reason for Referral Status Appt Date Freddie Naranjo MD DM type 1 with A1C in the 8.5 range Created 00/ 0000 currently. Was recently in the 11 range and developed neuropathy in both feet. Sy have not improved. He is also complaining of paresthesia in Both hands. This is in the ulnar nerve distribution. [address] [place] [address] [phone]
--- OUTSIDE RECORDS SUMMARY | 2019-08-24 12:07 | XMS REPORT | Continuity of Care Document ---
:1985 External Reference #:[id number] Author Name Federico Cerna MD Address [address] [place] [address] Care Team Providers Name Role Phone Alesia Mills M.D. - Internal Care Team Information Etl Consultant [phone] Medicine Problems Description No Information Available Social History Type Date Description Comments Sex Unknown Tobacco Use Start: Unknown End: Unknown Former Cigarette Smoker ETOH Use Rarely consumes alcohol Recreational Drug Use Regularly uses Marijuana Tobacco Use Start: Unknown End: Unknown Patient is a former smoker Smoking Status Reviewed: 06/22/19 Patient is a former smoker Allergies, Adverse Reactions, Alerts Active Allergies Reaction Severity Comments Date Seclor hives 06/22/2019 Medications Active Medications SIG Qnty Indications Ordering Provider Date Gabapentin 2 by mouth three Unknown 100mg times a day Capsules Admelog take as directed Unknown 100Unit/ML via insulin pump. Solution mdd 100u Immunizations Description No Information Available Vital Signs Date Vital Result Comment 06/22/2019 1:25pm Weight 180.00 lb Weight 81.648 kg BP Systolic 130 mmHg BP Diastolic 82 mmHg Hemoglobin A1C 8.3% done in office 05/23/2019 11:08am Weight 170.00 lb Weight 77.112 kg BMI (Body Mass Index) 26.6 kg/m2 BP Systolic 148 mmHg BP Diastolic 92 mmHg Height 67 inches 5'7" Height in cm's 170.2 cm Hemoglobin A1C 8.2% done in office today Results Description No Information Available Procedures Description No Information Available Medical Devices Description No Information Available Encounters Type Date Location Provider Dx Diagnosis Office Visit 06/22/2019 [facility] Federico Cheema E10.40 Type 1 diabetes 1:30p Diabetes & MD [place] mellitus with Endocrinology diabetic neuropathy, unsp Office Visit 05/23/2019 [facility] Federico Cheema E10.40 Type 1 diabetes 11:00a Diabetes & MD Eryn mellitus with Endocrinology diabetic neuropathy, unsp Assessments Date Code Description Provider 06/22/2019 E10.40 Type 1 diabetes mellitus with diabetic Federico Cerna MD neuropathy, unspecified 05/23/2019 E10.40 Type 1 diabetes mellitus with diabetic Federico Cerna MD neuropathy, unspecified Plan of Treatment 06/22/2019 - Federico Cerna [id number] Type 1 diabetes mellitus with diabetic neuropathy, unspecifiedComments:-I recommended right now continuing his current insulin pump settings-I recommended getting into thehabit of testing his sugar pre meal, enter into the bolus wizard feature on his pump his carbohydrates he is going to consume at the meal and his pre meal fingerstick. He should then bolus the recommended dose of insulin. - I reviewed a diabetic diet, stressing controlling portion sizes to avoid weight gain, and better controlling the portions of simple sugars and carbohydrates to avoid high spikesin the sugar readings- I discussed avoid and treating hypoglycemia. I asked to be called if recurrent hyperglycemia and hypoglycemia becomes a problem- I encouraged regular follow-up with the eye doctors for routine diabetic eye screening- I reviewed the need for daily self-foot exams, watching for the development of new blisters, ulcers, and lesions on the feet -I will see him back in 4-6 weeks time to follow-up -I did let him know I am residing from my position [facility] [place]. My last day is 08/23/2019. I let him know my available to him up until that time to help with the management of his diabetes. I did give him the name of an water systems engineer in [place], [place] as an option to switch over to in the near future. Functional Status Description No Information Available Mental Status Description No Information Available Referrals Description No Information Available
[2019-08-24 12:52] VITALS: BP 113/74
--- NOTE | 2019-08-24 13:29 | UC ---
Nausea/Vomiting/Diarrhea HPI - HPI Summary HPI Summary: Pt is a 34 yo with IDDM presents with 18 hours of n/v and abdominal cramping. STates ate mac and cheese last night - woke at 2am with sx. pt with multiple episodes of NB/NB emesis. states has abdominal cramping - mostly upper abd no fever,, chills no head congestion, chest pain, sob. Pt staes 2 coworkers with same - pt went to work but left with emesis. no rash. states BG have been okay. Pt has been treated with zofran in the past with improvement but "doesn't have any." Pt is making urine, no diarrhea. 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 Last DKA > 1 year - History of Current Complaint Chief Complaint: UCGI Stated Complaint: VOMITING Time Seen by Provider: 08/24/19 13:27 Hx Obtained From: Patient Onset/Duration: Sudden Onset Severity Initially: Moderate Severity Currently: Moderate Pain Intensity: 8 - Allergies/Home Medications Allergies/Adverse Reactions: Allergies Allergy/AdvReac Type Severity Reaction Status Date / Time cefaclor [From Ceclor] Allergy Hives Verified 08/24/19 12:52 PMH/Surg Hx/FS Hx/Imm Hx Previously Healthy: Yes Endocrine History: Diabetes - pump - Surgical History Surgical History: None - Family History Known Family History: Positive: Cardiac Disease, Hypertension, Diabetes, Non- Contributory - Social History Occupation: Employed Full-time Lives: With Family Alcohol Use: None Substance Use Type: Marijuana Substance Use Comment - Amount & Last Used: daily- last was 08/23/19 wale Smoking Status (MU): Former Smoker Type: Cigarettes Amount Used/How Often: 3 cigarettes/week Length of Time of Smoking/Using Tobacco: 11 YRS Have You Smoked in the Last Year: Yes When Did the Patient Quit Smoking/Using Tobacco: QUIT NOVEMBER 2015 - Immunization History Most Recent Influenza Vaccination: none Review of Systems All Other Systems Reviewed And Are Negative: Yes Constitutional: Positive: Negative ENT: Positive: Negative Respiratory: Positive: Negative Cardiovascular: Positive: Negative Gastrointestinal: Positive: Abdominal Pain, Vomiting, Nausea. Negative: Diarrhea Physical Exam - Summary Physical Exam Summary: Vital Signs Reviewed: Yes A+Ox3, active dry heave, tired appearing Eyes: Conjunctiva Clear, CHAPIS. 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 Skin: Positive: no rash, no ecchymosis Vital Signs: Initial Vital Signs Temp 98.4 F 08/24/19 12:44 Pulse 99 08/24/19 12:44 Resp 20 08/24/19 12:44 BP 113/74 08/24/19 12:44 Pulse Ox 100 08/24/19 12:44 Diagnostics - Radiology No standard instances Radiology Interpretation Completed By: Radiologist - Patient Name: EPIFANIO FONTANA Medical Record#: [id number] Ordering Physician: Regla Mills MD Acct.#: [id number] : 1985 Age: 34 Sex: M [facility] Exam Date: 08/24/19 1337 ADM Status: REG ER Order Information: US ABDOMEN LIMITED Accession Number: [id number] CPT: 07951 Indication: Right upper quadrant pain. Real-time sonography of the right upper quadrant was performed. The liver is normal in size. It measures 15.7 cm in length. Hyperechoic lesion in the right lobe of liver measures 1.2 x 1.1 x 1.4 cm may represent hemangioma. Isoechoic lesion in the liver is noted in the left lobe measuring 1.7 x 1.4 x 2.0 cm. Correlation with MRI of the liver is suggested to further characterize the especially the left lobe lesion. No intrahepatic ductal dilatation is noted. The gallbladder demonstrates no gallstones, pericholecystic fluid or wall thickening. The common duct measures up to 0.3 cm. Right kidney measures 13.6 x 4.2 x 4.6 cm with no hydronephrosis. The visualized pancreas head, neck and proximal body are unremarkable. Aorta and inferior vena cava are unremarkable. IMPRESSION: No cholelithiasis or biliary duct dilatation is noted. Echogenic lesion in the right lobe of liver near the dome may represent hemangioma. Isoechoic lesion in the left lobe of liver is noted which may represent atypical hemangioma or other benign or neoplastic process. MR of the liver is suggested for further characterization. <Electronically signed by Jessenia Agee MD in [place]> 08/24/19 1418 Dictated By: Jessenia Agee MD Dictated Date/ Time: 08/24/19 141 Transcribed Date/Time: 08/24/191409 Copy to: CC:Regla Mills MD; Naina GALLEGOS Imaging - [facility] [address] [address] ph ([phone]) ph ([phone]) ph ([phone]) This report is only to be considered final once signed by the Provider(s) as displayed in the "<Electronically Signed by >" field (s). Absence of a signature indicates the report is in a draft status and still needs to be finalized. In the event this document was created by someone other than the signing Provider, the individual initiating the document will be listed in the "Entered by:" or "Dictated by:" blackman. 1 of 2 Re-Evaluation - Re-Evaluation First Eval Comment: Pt improved following zofran. still with abd cramping, but nausea improved.. Drinking water. reviewed US with pt incluing liver findings -states understanding must FU with PCP for futher evaluation. reviewed BG and urine - non concerning. will send home. Rx zofran. strict return precautions - recommend ED if emesis continues. pt states understanding and agreement with plan Naus/Vom/Diarrhea Course/Dx - Course Course Of Treatment: Pt present to UC with 18 hours of n/v and epigastric, RUQ pain. Coworkers with similar sx no fever on exam, active dry heaves, TTP epigasrtic, RUQ non toxic appearing Will check urine for ketones and FSBG Offered IVF - pt declined - would like to try zofran and oral hydration first ultrasound influenza and recheck pt comfortable and in agreement with plan - Differential Dx/Diagnosis Provider Diagnosis: Nausea and vomiting Condition At Discharge: Stable Discharge ED - Sign-Out/Discharge Documenting (check all that apply): Patient Departure All imaging exams completed and their final reports reviewed: Yes - Discharge Plan Condition: Stable Disposition: HOME Prescriptions: Ondansetron ODT TAB* [Zofran 4 MG Odt TAB*] 4 mg PO Q4H PRN #10 tab.odt PRN Reason: Nausea Patient Education Materials: Acute Nausea and Vomiting (ED) Forms: *Gen. Provider Communication, *Work Release Referrals: Naina Sanchez PA [Primary Care Provider] - Additional Instructions: - Okay to take medication as prescribed for nausea and vomiting - Okay to alternate ibuprofen (Advil, Motrin) and Tylenol (acetaminophen) every 3 hours for pain or fever. Take with food. Do NOT take for more than 4-5 days. - drink plenty of non-alcoholic, non-caffinated fluids. frequent sips. If you tolerate this okay, eat small, frequent amounts of bland food (crackers, dry toast, scrambled eggs, applesauce) - avoid spicy foods, acidic foods, tomato based foods, citric foods, fried foods, fatty foods - get plenty of restful sleep - monitor your blood sugar closely - if you have peristent high blood sugars it is recommended you go to the emergency department for fluids and further evaluation As discussed, there were 2 lesions noted on your liver today. You should follow- up with your primary care provider for further imaging and evaluation - - Billing Disposition and Condition Condition: STABLE Disposition: Home
[2019-08-24] MEDS ORDERED: Ondansetron ODT TAB* 4 MG PO ONE (13:37)
[2019-08-24 14:00] LABS: Influenza A Molecular Negative (Negative); Influenza B Molecular Negative (Negative)
== END 2019-08-24 14:45 | disposition home or self-care (01) ==
LOC: UCCORT 12:01
DX: R11.2 Nausea with vomiting, unspecified (principal); E11.9 Type 2 diabetes mellitus without complications; R10.9 Unspecified abdominal pain; Z96.41 Presence of insulin pump (external) (internal); Z87.891 Personal history of nicotine dependence; Z88.1 Allergy status to other antibiotic agents
CPT/HCPCS: 76705; 81003; 99212; A9270-GY; G0463

== ENCOUNTER 2019-09-03 16:45 | Emergency (ER) | payer OTHER ==
[2019-09-03 17:37] VITALS: BP 126/71
--- NOTE | 2019-09-03 17:40 | UC ---
General HPI - HPI Summary HPI Summary: felt feverish and chilled today at work---left work early and went home to sleep for 4-5 hours and feels a lot better needs a work note for today-blood sugars have been running high but no ketones----has chronic left shoulder pain and no new injury, has appointment with ortho tomorrow---no concerns now - History of Current Complaint Chief Complaint: UCGeneralIllness Stated Complaint: LEFT SHOULDER INJURY Time Seen by Provider: 09/03/19 17:29 Hx Obtained From: Patient Onset/Duration: Sudden Onset, Lasting Hours, Resolved Pain Intensity: 7 Associated Signs & Symptoms: Positive: Diaphoresis, Nausea - Allergy/Home Medications Allergies/Adverse Reactions: Allergies Allergy/AdvReac Type Severity Reaction Status Date / Time cefaclor [From [facility]] Allergy Hives Verified 09/03/19 17:31 Home Medications: Home Medications Gabapentin CAP(*) [Neurontin 300 CAP(*)] 300 mg PO TID 09/03/19 [History Confirmed 09/03/19] PMH/Surg Hx/FS Hx/Imm Hx Previously Healthy: No Endocrine History: Diabetes - Surgical History Surgical History: None - Family History Known Family History: Positive: Cardiac Disease, Hypertension, Diabetes, Non- Contributory - Social History Occupation: Employed Full-time Lives: With Family Alcohol Use: None Substance Use Type: Marijuana Substance Use Comment - Amount & Last Used: daily Smoking Status (MU): Former Smoker Type: Cigarettes Amount Used/How Often: 3 cigarettes/week Length of Time of Smoking/Using Tobacco: 11 YRS Have You Smoked in the Last Year: Yes When Did the Patient Quit Smoking/Using Tobacco: QUIT NOVEMBER 2015 - Immunization History Most Recent Influenza Vaccination: none Review of Systems All Other Systems Reviewed And Are Negative: Yes Constitutional: Positive: Negative Skin: Positive: Negative Eyes: Positive: Negative ENT: Positive: Negative Respiratory: Positive: Negative Cardiovascular: Positive: Negative Gastrointestinal: Positive: Abdominal Pain, Nausea Genitourinary: Positive: Negative Motor: Positive: Negative Neurovascular: Positive: Negative Musculoskeletal: Positive: Negative Neurological/Mental Status: Positive: Negative Psychological: Positive: Negative Is Patient Immunocompromised?: No Physical Exam Triage Information Reviewed: Yes Appearance: Well-Appearing, No Pain Distress, Well-Nourished Vital Signs: Initial Vital Signs Temp 97.1 F 02/16/20 17:31 Pulse 83 09/03/19 17:31 Resp 16 09/03/19 17:31 BP 126/71 09/03/19 17:31 Pulse Ox 100 09/03/19 17:31 Vital Signs Reviewed: Yes Eye Exam: Normal Eyes: Positive: Conjunctiva Clear ENT Exam: Normal ENT: Positive: Normal ENT inspection, Hearing grossly normal, Pharynx normal, TMs normal. Negative: Nasal congestion, Trismus, Muffled voice, Hoarse voice Dental Exam: Normal Neck exam: Normal Neck: Positive: Supple, Nontender, No Lymphadenopathy Respiratory Exam: Normal Respiratory: Positive: Chest non-tender, Lungs clear, Normal breath sounds, No respiratory distress, No accessory muscle use Cardiovascular Exam: Normal Cardiovascular: Positive: RRR, No Murmur, Pulses Normal, Brisk Capillary Refill Abdominal Exam: Normal Abdomen Description: Positive: Nontender, No Organomegaly, Soft. Negative: CVA Tenderness (R), CVA Tenderness (L), Hepatomegaly, McBurney's Point Tenderness, Peritoneal Signs Bowel Sounds: Positive: Present Musculoskeletal Exam: Normal Musculoskeletal: Positive: Strength Intact, ROM Intact, No Edema Neurological Exam: Normal Neurological: Positive: Alert, Muscle Tone Normal Psychological Exam: Normal Skin Exam: Normal Diagnostics - Laboratory Lab Results: ua =2 glucose - ketones Course/Dx - Course Course Of Treatment: increase fluids, monitor and cover blood sugars follow with pcp as planned on wednesday and ortho on wednesday - Diagnoses Provider Diagnosis: Nonspecific syndrome suggestive of viral illness, Hyperglycemia Discharge ED - Sign-Out/Discharge Documenting (check all that apply): Patient Departure All imaging exams completed and their final reports reviewed: No Studies - Discharge Plan Condition: Stable Disposition: HOME Patient Education Materials: Viral Syndrome (ED) Forms: *Work Release Referrals: Naina Sanchez PA [Primary Care Provider] - If Needed - Billing Disposition and Condition Condition: STABLE Disposition: Home - Attestation Statements Provider Attestation: This patient was not seen by me. I was available for consult. Chart reviewed. [id number]
== END 2019-09-03 18:28 | disposition home or self-care (01) ==
LOC: UCCORT 16:45
DX: E11.65 Type 2 diabetes mellitus with hyperglycemia (principal); R50.9 Fever, unspecified; G89.29 Other chronic pain; M25.512 Pain in left shoulder; R10.9 Unspecified abdominal pain; R11.0 Nausea; Z88.1 Allergy status to other antibiotic agents; Z87.891 Personal history of nicotine dependence
CPT/HCPCS: 81003; 99211; G0463

== ENCOUNTER 2019-09-23 15:38 | Emergency (ER) | payer OTHER ==
--- OUTSIDE RECORDS SUMMARY | 2019-09-23 15:44 | XMS REPORT | Continuity of Care Document ---
:1985 External Reference #:[id number] Author Name Olivia Cameron MD Address [address] [place] [address] Care Team Providers Name Role Phone Naina Sanchez PA - Medical Care Team Information Employment Officer [phone] Problems Active Problems Provider Date Type 1 diabetes mellitus uncontrolled Naina Sacnhez PA Onset: 05/18/2018 Anxiety state Naina Sanchez [...] Start: Unknown End: Unknown Former Cigarette Smoker Smoking Status Reviewed: 09/15/19 Former Cigarette Smoker ETOH Use Denies alcohol use Recreational Drug Use Marijuana Tobacco Use Start: Unknown End: Patient is a former smoker Allergies, Adverse Reactions, Alerts Active Allergies Reaction Severity Comments Date Cefaclor 05/18/2018 Medications Active Medications SIG Qnty Indications Ordering Provider Date Cymbalta 1 by mouth 30caps F43.23 Alesia Mills MD 09/05/[address] every day Part E10.42 Lisinopril 1 by mouth every 30tabs I10 Alesia Mills, 09/05/2019 2.5mg Tablets day Naproxen 1 tabs by mouth 60tabs S46.012A Alesia Mills, 07/31/2019 375mg Tablets twice a day with food for pain. Gabapentin 1 tab by mouth 120caps Alesia Mills, 06/21/2019 300mg Capsules morning and afternoon, 2 at bedtime. Alclometasone twice a day as 45gm L20.9 Alesia Mills, 05/31/2019 Dipropionate needed for up to 14 MD 0.05% days. Ointment Sildenafil Citrate 2 tab by mouth as 30tabs F52.21 Alesia Mills, 2018 20mg directed for ed MD Tablets Rosuvastatin Calcium take 1 tablet by 30tabs E10.42 Alesia Mills, 2018 5mg mouth every day at Tablets bedtime Admelog 0.9 sc midnight to 30ml E10.65 Alesia Mills, 04/05/2019 100Unit/ML 0700, 1.15 0700 to Solution midnight Cartridges for continuous pump History Medications Cymbalta 1 tab by mouth 30caps F43.23 Alesia Mills, 07/31/2019 - 30mg Caps every day at 09/05/2019 DR Wilks bedtime Doxycycline Hyclate take 1 tablet by 20tabs L03.116 Alesia Mills, 2019 - mouth every 12 MD 08/10/2019 100mg Tablets hours for 10 days for infection Lisinopril 1 by mouth every 30tabs L20.9 Alesia Mills, 05/31/2019 - 5mg day MD 09/04/2019 Tablets Gabapentin Take One Capsule 120caps Alesia Mills, 05/05/2019 - 100mg By Mouth Three MD 06/21/2019 Capsules Times A Day For Neuropathic Pain, Increase Dose To 3 Capsules Three Times A Day as Tolerated Immunizations CPT Code Status Date Vaccine Lot # [id number] Given 05/31/2019 Influenza Virus Vaccine, Quadrivalent, 36 Mos+, [id number] Vital Signs Date Vital Result Comment 09/15/2019 10:23am BP Systolic Sitting Left Arm 149 mmHg BP Diastolic Sitting Left Arm 95 mmHg Heart Rate 102 /min 09/05/2019 10:19am BP Systolic 122 mmHg BP Diastolic 70 mmHg Body Temperature 97.9 F Heart Rate 61 /min Respiratory Rate 18 /min Height 69 inches 5'9" Weight 177.00 lb BMI (Body Mass Index) 26.1 kg/m2 BSA (Body Surface Area) 1.96 m2 Ava body weight in kilograms 73 kg O2 % BldC Oximetry 93 % Results Test Acquired Date Facility Test Result H/L Range Note Ua RFX Micro & 09/08/2019 [facility] Urine Color Colorless Yellow 1 Culture II [address] [place], [place] [id number] [phone] Urine Clarity Clear Clear Urine Glucose - Dipstick NEGATIVE mg/dL Negative Urine Bilirubin - Dipstick NEGATIVE Negative Urine Ketone NEGATIVE mg/dL Negative Urine Specific [place] < 1.005 Low 1.010-1.030 Urine Blood NEGATIVE Negative Urine PH 6.0 Low 6.5-7.5 Urine Protein - Dipstick NEGATIVE mg/dL Negative Urine Urobilinogen - Dipstick < 2.0 mg/dL < 2.0 Urine Nitrite - Dipstick NEGATIVE Negative Urine Leuk Esterase NEGATIVE Negative Source: URINE, CLEAN CAT <SEE NOTE> 2 Venous Blood 09/08/2019 [facility] Venous Blood 7.33 Normal 7.31-7.41 Gas [address] [facility] Gas pH [place], [place] [id number] [phone] Venous Blood Gas Pco2 52 mmHg High 45-50 Venous Blood Gas Po2 46 mmHg Normal 40-60 Venous Blood Gas Hco3 27.1 mEq/L Venous Blood Gas Base XS 0.4 mEq/L Venous Blood Gas OS Sat. 81.0 % High 60-80 Laboratory 09/08/2019 [facility] Ketones, NEGATIVE Negative 3 test finding [address] [facility] Serum [place], [place] [id number] [phone] Poc Urinalysis 09/03/2019 [facility] Poc Glucose, 2+ Abnormal Negative [phone] Urine Poc Bilirubin, Urine NEGATIVE Negative Poc Ketone, Urine NEGATIVE Negative Poc Specific [place], Urine 1.010 Normal 1.010-1.030 Poc Blood, Urine NEGATIVE Negative 4 Poc pH, Urine 5.5 Normal 5-9 Poc Protein, Urine NEGATIVE Negative Poc Urobilinogen, Urine 0.2 Negative Poc Nitrite, Urine NEGATIVE Negative Poc Leukocytes, Urine NEGATIVE Negative Poc Color, Urine YELLOW Poc Clarity, Urine CLEAR Rapid Influenza 08/24/2019 [facility] Influenza A Negative Negative A & B Molecular [phone] Molecular Influenza B Molecular Negative Negative 5 Poc Urinalysis 08/24/2019 [facility] Poc Glucose, 1+ Abnormal Negative [phone] Urine Poc Bilirubin, Urine NEGATIVE Negative Poc Ketone, Urine NEGATIVE Negative Poc Specific [place], Urine 1.015 Normal 1.010-1.030 Poc Blood, Urine NEGATIVE Negative 6 Poc pH, Urine 5.5 Normal 5-9 Poc Protein, Urine NEGATIVE Negative Poc Urobilinogen, Urine 0.2 Negative Poc Nitrite, Urine NEGATIVE Negative Poc Leukocytes, Urine NEGATIVE Negative Poc Color, Urine DARK YELLOW Poc Clarity, Urine CLEAR Laboratory 08/24/2019 [facility] Point of 193 mg/dL High 70-100 7, 8 test finding [phone] Care Glucose TSH Reflex FT4 04/06/[address] Thyroid 1.79 Normal 0.30-4.20 9 And/Or FT3 [address] [place] [address] Stim uIU/[place] [address] Hormone [phone] Reflex add FT3? Y Reflex add FT4? Y LDL Cholesterol Profile 04/06/[address] Cholesterol 137 mg/dL <[phone] [place] [address] [phone] Triglycerides 45 mg/dL <150 11 HDL Cholesterol 50 mg/dL >40 12 LDL-Cholesterol 78 mg/dL < 100 13 Reflex add FT3? Y Reflex add FT4? Y Glycohemoglobin 04/06/[address] Glycohemoglobin 9.8 % High 4.2-6.3 [address] [place] [address] (A1c) [place] [address] [phone] eAG 235 mg/dL Comprehensive Metabolic 04/06/[address] Glucose 239 mg/dL High 74-[address] [place] [phone] [phone] BUN 13 mg/dL Normal 7-18 Creatinine 1.0 mg/dL Normal 0.6-1.3 Glom Filtration Rate, Estimate >60 mL/min >60 If >60 mL/min >60 15 BUN/Creat 13.0 ratio Sodium 139 mmol/L Normal [...] add FT3? Y Reflex add FT4? Y CBC W/Automated 04/06/[address] White Blood 5.4 K/uL Normal 3.4-10.[address] [place], [place] [id number] [phone] Red Blood Count 4.76 M/uL Normal 4.20-5.80 [...] 33.0-73.0 Lymph % 31.2 % Normal 20.0-42.0 [place] % 9.5 % Normal 0.0-10.0 Eo% 2.4 % Normal 0.0-6.6 Bas% 0.9 % Normal 0.0-1.1 Immature Grans 2.0 % Normal 0.0-5.0 NRBC % 0.0 /100WBC < 10/ 100 WBC Neut# 2.91 K/uL Normal 1.8-7.0 Lymph # 1.68 K/uL Normal 1.0-4.0 [place] # 0.51 K/uL Normal 0.0-0.8 Eos # 0.13 K/uL Normal 0.0-0.5 Baso # 0.05 K/uL Normal 0.0-0.1 Immature Grans Absolute 0.11 K/uL NRBC # 0.00 K/uL Urine Dipstick 04/05/2019 [facility] Ua Color yellow Yellow Ua Clarity clear Clear Ua Leuko negative Negative Ua Nitrite negative Negative Ua Urobilinogen 3.5 High 0.2 - 1.0 E.U./dL Ua Protein negative Negative Ua PH 6.0 Low 6.5-7.5 Ua Blood negative Negative Ua Specific [place] 1.020 1.010-1.030 Ua Ketones 0.5 High Negative Ua Bilirubin negative Negative Ua Glucose 60 High Negative Microalbumin,Random 04/05/2019 [facility] [address] Microalbumin,Urine 8.4 < Urine [address] mg/L 20.0 [place] [address] [phone] Blood Culture 03/27/2019 [facility] Blood Culture NO 16, [address] Aerobic GROWTH: 17 [place] [address] FINAL [phone] <SEE NOTE> Blood Culture Anaerobic NO GROWTH: FINAL <SEE NOTE> 18 Influenza A/B 03/27/2019 [facility] Influenza A Negative (Negative) Antigen [address] [place] [address] [phone] Influenza B Antigen Negative (Negative) 19 Comprehensive Metabolic 03/27/2019 [facility] Glucose 204 mg/dL High 74-[address] [place] [address] [phone] BUN 11 mg/dL Normal 7-18 Creatinine 1.1 mg/dL Normal 0.6-1.3 Glom Filtration Rate, Estimate >60 mL/min >60 If >60 mL/min >60 20 BUN/Creat 10.0 ratio Sodium 137 mmol/L Normal [...] 98 U/L Normal 45-117 CBC W/Automated 03/27/2019 [facility] White Blood 9.9 K/uL Normal 3.4-10.[address] [place] [address] [phone] Red Blood Count 5.36 M/uL Normal 4.20-5.80 [...] 33.0-73.0 Lymph % 13.6 % Low 20.0-42.0 [place] % 8.9 % Normal 0.0-10.0 Eo% 0.5 % Normal 0.0-6.6 Bas% 0.4 % Normal 0.0-1.1 Immature Grans 0.5 % Normal 0.0-5.0 NRBC % 0.0 /100WBC < 10/ 100 WBC Neut# 7.51 K/uL High 1.8-7.0 Lymph # 1.34 K/uL Normal 1.0-4.0 [place] # 0.88 K/uL High 0.0-0.8 Eos # 0.05 K/uL Normal 0.0-0.5 Baso # 0.04 K/uL Normal 0.0-0.1 Immature Grans Absolute 0.05 K/uL NRBC # 0.00 K/uL Lactic Acid 03/27/2019 [facility] Lactic Acid 1.4 mmol/L Normal 0.4-1.[address] [place] [id number] [phone] Lab Reflex >2.0 for Sepsis? Y Blood Culture 03/27/2019 [facility] Blood Culture NO GROWTH: FINAL [address] Aerobic <SEE NOTE> [place] [address] [phone] Blood Culture Anaerobic NO GROWTH: FINAL <SEE NOTE> 23 1 DIABETIC ISSUES 2 URINE, CLEAN CATCH 3 Method: [place] AimTab Ketone Tablets 4 Elevator Builder: [id number] 5 Elevator Builder: [id number] 6 Elevator Builder: [id number] 7 MD to be notified 8 Elevator Builder: [id number] 9 E10.65 10 Reference Guidelines*: Desirable: ........... < 200 mg/dL Borderline High: ..... 200-239 mg/dL High: ................ >= 240 mg/dL * The National Cholesterol Education Program (NCEP) 11 Reference Guidelines*: Normal: ............. < 150 mg/dL Borderline High: .... 150-199 mg/dL High: ............... 200-499 mg/dL Very High: .......... > 500 mg/dL * Source: National Cholesterol Education Program (NCEP) 12 Reference Guidelines*: Low HDL: ..... < 40 mg/dL Normal: ..... 40-60 mg/dL Desirable: ... > 60 mg/dL *The National Cholesterol Education Program(NCEP) 13 Reference Guidelines*: Optimal:........... <100 mg/dL Near Optimal....... 100-129 mg/dL Borderline High.... 130-159 mg/dL High............... 160-189 mg/dL Very High.......... >=190 mg/dL * Source: National Cholesterol Education Program (NCEP) 14 Elevated levels of HbA1c suggest the need for more aggressive treatment of glycemia. The [place] [employer] recommends that a primary goal of therapy should be a HbA1c of <7% and that physicians should re-evaluate the treatment regimen in patients with HbA1c values consistently >8%. 15 Note: Persistent reduction for 3 months or more in an eGFR <60 mL/min/1.73 m2 defines CKD. Patients with eGFR values >/=60 mL/min/1.73 m2 may also have CKD if evidence of persistent proteinuria is present. The original MDRD equation for estimated GFR is not valid for patients less than 18 years of age. Additional information may be found at www.kdoqi.org. 16 BOILS IN ARMPIT, FLU-LIKE SYMPTOMS 17 NO GROWTH: FINAL REPORT 18 NO GROWTH: FINAL REPORT 19 Please Note: A POSITIVE result for influenza [...] influenza A and B molecular assay. Method: CTSpace Chromatographic immunoassay 20 Note: Persistent reduction for 3 months or more in an eGFR <60 mL/min/1.73 m2 defines CKD. Patients with eGFR values >/=60 mL/min/1.73 m2 may also have CKD if evidence of persistent proteinuria is present. The original MDRD equation for estimated GFR is not valid for patients less than 18 years of age. Additional information may be found at www.kdoqi.org. 21 Specimen slightly Hemolyzed, interpret with caution 22 NO GROWTH: FINAL REPORT 23 NO GROWTH: FINAL REPORT Procedures Date Code Description Status 06/06/2019 62525 Retina Completed 06/06/2019 81164 Eye Exam Est Patient Comprehensive Completed 05/02/2019 45342 Eye Exam New Patient Comprehensive Completed Medical Devices Description No Information Available Encounters Type Date Location Provider Dx Diagnosis Office Visit 09/15/2019 Orthopaedic Office Olivia Cameron M75.42 Impingement 10:30a syndrome of left shoulder S46.002D Unsp inj musc/tend the rotator cuff of l shoulder, subs Office Visit 09/05/2019 10:30a Family Medicine Naina Sanchez, F43.[address] PA disorder with mixed anxiety and depressed mood M75.42 Impingement syndrome of left shoulder E10.42 Type 1 diabetes mellitus with diabetic polyneuropathy I10 Essential (primary) hypertension R93.5 Abn findings on dx imaging of abd regions, inc retroperiton Office Visit 09/04/2019 10:45a Orthopaedic Nisha M75.42 Impingement Office MD Olivia syndrome of left shoulder S46.002D Unsp inj musc/tend the rotator cuff of l shoulder, subs E10.42 Type 1 diabetes mellitus with diabetic polyneuropathy Office Visit 07/31/2019 1:50p Family Medicine Laura E10.42 Type [address] ROSY Chew mellitus with diabetic polyneuropathy I10 Essential (primary) hypertension L03.116 Cellulitis of left lower limb S46.012A Strain of musc/tend the rotator cuff of left shoulder, init F43.23 Adjustment disorder with mixed anxiety and depressed mood Office Visit 05/31/2019 3:00p Family Medicine Naina Sanchez, I10 Essential (primary) West CECIL GALLEGOS hypertension E10.42 Type 1 diabetes mellitus with diabetic polyneuropathy L20.9 Atopic dermatitis, unspecified F52.21 Male erectile disorder Z23 Encounter for immunization Office Visit 04/05/2019 4:45p Family Medicine Naina Sanchez, E10.65 Type [address] ROSY mellitus with hyperglycemia L03.90 Cellulitis, unspecified E10.42 Type 1 diabetes mellitus with diabetic polyneuropathy R60.0 Localized edema F17.211 Nicotine dependence, cigarettes, in remission Z91.120 Pt intentl undrdose of meds regimen due to financl hardship Assessments Date Code Description Provider 09/15/2019 M75.42 Impingement syndrome of left shoulder Olivia Cameron MD 09/15/2019 S46.002D Unspecified injury of muscle(s) and tendon(s) Olivia Cameron MD of the rotator cuff of left shoulder, subsequent encounter 09/05/2019 F43.23 Adjustment disorder with mixed anxiety and Naina Sanchez PA depressed mood 09/05/2019 M75.42 Impingement syndrome of left shoulder Naina Sanchez PA 09/05/2019 E10.42 Type 1 diabetes mellitus with diabetic Naina Sanchez PA polyneuropathy 09/05/2019 I10 Essential (primary) hypertension Naina Sanchez PA 09/05/2019 R93.5 Abnormal findings on diagnostic imaging of Naina Sanchez PA other abdominal regions, including retroperitoneum 09/04/2019 M75.42 Impingement syndrome of left shoulder Olivia Cameron MD 09/04/2019 S46.002D Unspecified injury of muscle(s) and tendon(s) Olivia Cameron MD of the rotator cuff of left shoulder, subsequent encounter 09/04/2019 E10.42 Type 1 diabetes mellitus with diabetic Olivia Cameron MD polyneuropathy 07/31/2019 E10.42 Type 1 diabetes mellitus with [...] PA 04/05/2019 Z91.120 Patient's intentional underdosing of Naina Sanchez PA medication regimen due to financial hardship Plan of Treatment Future Appointment(s):11/06/2019 9:40 am - Alfie Meadows MD at Cardiology [id number]/16/2019 9:30 am - Olivia Cameron MD at Orthopaedic [id number]/05/2019 10:00 am - Marcos East MD at Aeqhwibbigkii16/18/2020 - Naina Sanchez, PAF43.23 Adjustment disorder with mixed anxiety and depressed moodNew Medication :Cymbalta 60 mg - 1 by mouth every dayM75.42 Impingement syndrome of left shoulderComments:Patient notes improvement w home exercise given by Dr. Cameron. He will start PT if he is not making good progress over the next week or two.E10.42 Type 1 diabetes mellitus with diabetic polyneuropathyNew Medication: Cymbalta 60 mg - 1 by mouth every dayI10 Essential (primary) hypertensionNew Medication:Lisinopril 2.5 mg - 1 by mouth every dayComments:Patient has stopped his lisinopril due to dizziness. I suggest it be restarted at 2.5 mg daily.R93.5 Abnormal findings on diagnostic imaging of other abdominal regions, including retroperitoneumNew Xrays:MRI, Abdomen, W/O Contrast, Ordered: 09/05/19 Functional Status Description No Information Available Mental Status Description No Information Available Referrals Refer to Reason for Referral Status Appt Date Freddie Naranjo MD DM type 1 with A1C in the 8.5 range Sent 11/16/2019 currently. Was recently in the 11 range and developed neuropathy in both feet. Sy have not improved. He is also complaining of paresthesia in Both hands. This is in the ulnar nerve distribution. [address] [place] [address] [phone]
--- OUTSIDE RECORDS SUMMARY | 2019-09-23 15:44 | XMS REPORT | Continuity of Care Document ---
:1985 External Reference #:[id number] Author Name Olivia Cameron MD Address [address] [place] [address] Care Team Providers Name Role Phone Naina Sanchez PA - Medical Care Team Information Clearing Hand [phone] Problems Active Problems Provider Date Type 1 [...] Unknown Former Cigarette Smoker Smoking Status Reviewed: 09/04/19 Former Cigarette Smoker ETOH Use Denies alcohol [...] every day at MD 5mg Tablets bedtime Admelog 0.9 sc midnight to 30ml E10.65 [place], 04/05/2019 100Unit/ML 0700, 1.15 0700 to MD Solution midnight Cartridges for continuous pump History Medications Doxycycline Hyclate take 1 tablet by 20tabs [...] CPT Code Status Date Vaccine Lot # [id number] Given 05/31/2019 Influenza Virus Vaccine, Quadrivalent, 36 Mos+, [id number] .[id number] Vital Signs Date Vital Result Comment 09/04/2019 10:34am BP Systolic Sitting Left Arm 134 mmHg BP Diastolic Sitting Left Arm 87 mmHg Heart Rate 98 /min Height 69 inches 5'9" Weight 173.00 lb BMI (Body Mass Index) 25.5 kg/m2 BSA (Body Surface Area) 1.94 m2 [place] body weight in kilograms 73 kg 07/31/2019 1:54pm BP Systolic 120 mmHg BP Diastolic 68 mmHg Body Temperature 97.5 F Heart Rate 79 /min Respiratory Rate 18 /min Height 69.5 inches 5'9.50" Weight 186.25 lb BMI (Body Mass Index) 27.1 kg/m2 BSA (Body Surface Area) 2.01 m2 [place] body weight in kilograms 74 kg O2 % BldC Oximetry 98 % Results Test Acquired Date Facility Test Result H/L Range Note Poc Urinalysis 09/03/2019 [facility] Poc 2+ Abnormal Negative [phone] Glucose, Urine Poc Bilirubin, Urine NEGATIVE Negative Poc Ketone, Urine NEGATIVE Negative Poc Specific [place], Urine 1.010 Normal 1.010-1.030 Poc Blood, Urine NEGATIVE Negative 1 Poc pH, Urine 5.5 Normal 5-9 Poc Protein, Urine NEGATIVE Negative Poc Urobilinogen, Urine 0.2 Negative Poc Nitrite, Urine NEGATIVE Negative Poc Leukocytes, Urine NEGATIVE Negative Poc Color, Urine YELLOW Poc Clarity, Urine CLEAR Rapid Influenza 08/24/2019 [facility] Influenza A Negative Negative A & B Molecular [phone] Molecular Influenza B Molecular Negative Negative 2 Poc Urinalysis 08/24/2019 [facility] Poc Glucose, 1+ Abnormal Negative [phone] Urine Poc Bilirubin, Urine NEGATIVE Negative Poc Ketone, Urine NEGATIVE Negative Poc Specific [place], Urine 1.015 Normal 1.010-1.030 Poc Blood, Urine NEGATIVE Negative 3 Poc pH, Urine 5.5 Normal 5-9 Poc Protein, Urine NEGATIVE Negative Poc Urobilinogen, Urine 0.2 Negative Poc Nitrite, Urine NEGATIVE Negative Poc Leukocytes, Urine NEGATIVE Negative Poc Color, Urine DARK YELLOW Poc Clarity, Urine CLEAR Laboratory test 08/24/2019 [facility] Point of 193 mg /dL High 70-100 4, 5 finding [phone] Care Glucose CBC W/Automated 04/06/[address] [facility] [address] White Blood 5.4 K/uL Normal 3.4-10.5 [address] [place] [address] [phone] Red Blood Count 4.76 M/uL Normal 4.20-5.80 [...] 33.0-73.0 Lymph % 31.2 % Normal 20.0-42.0 [place] % 9.5 % Normal 0.0-10.0 Eo% 2.4 % Normal 0.0-6.6 Bas% 0.9 % Normal 0.0-1.1 Immature Grans 2.0 % Normal 0.0-5.0 NRBC % 0.0 /100WBC < 10/ 100 WBC Neut# 2.91 K/uL Normal 1.8-7.0 Lymph # 1.68 K/uL Normal 1.0-4.0 [place] # 0.51 K/uL Normal 0.0-0.8 Eos # 0.13 K/uL Normal 0.0-0.5 Baso # 0.05 K/uL Normal 0.0-0.1 Immature Grans Absolute 0.11 K/uL NRBC # 0.00 K/uL Comprehensive Metabolic 04/06/[address] [facility] [address] Glucose 239 mg/dL High 74-106 Panel [address] [place], [place] [address] [phone] BUN 13 mg/dL Normal 7-18 Creatinine 1.0 mg/dL Normal 0.6-1.3 Glom Filtration Rate, Estimate >60 mL/min >60 If >60 mL/min >60 7 BUN/Creat 13.0 ratio Sodium 139 mmol/L Normal [...] Y Reflex add FT4? Y Glycohemoglobin 04/06/[address] [facility] [address] Glycohemoglobin 9.8 % High 4.2-6.3 8 A1c [address] [facility] (A1c) [place] [address] [phone] eAG 235 mg/dL LDL Cholesterol Profile 04/06/[address] [facility] [address] Cholesterol 137 mg/dL <200 9 [address] [place] [address] [phone] Triglycerides 45 mg/dL <150 10 HDL Cholesterol 50 mg/dL >40 11 LDL-Cholesterol 78 mg/dL < 100 12 Reflex add FT3? Y Reflex add FT4? Y TSH Reflex 04/06/[address] [facility] [address] Thyroid Stim 1.79 uIU/mL Normal 0.30-4.20 FT4 And/Or [address] [facility] Hormone FT3 [place] [address] [phone] Reflex add FT3? Y Reflex add FT4? Y Microalbumin,Random 04/05/[address] [facility] [address] Microalbumin,Urine 8.4 mg/ L < 20.0 Urine [address] [place] [address] [phone] Urine Dipstick 04/05/2019 [facility] Ua Color yellow Yellow Ua Clarity clear Clear Ua Leuko negative Negative Ua Nitrite negative Negative Ua Urobilinogen 3.5 High 0.2 - 1.0 E.U./dL Ua Protein negative Negative Ua PH 6.0 Low 6.5-7.5 Ua Blood negative Negative Ua Specific [place] 1.020 1.010-1.030 Ua Ketones 0.5 High Negative Ua Bilirubin negative Negative Ua Glucose 60 High Negative Blood Culture 03/27/2019 [facility] Blood Culture NO GROWTH: 13, [address] Aerobic FINAL <[place] [address] NOTE> [phone] Blood Culture Anaerobic NO GROWTH: FINAL <SEE NOTE> 15 Influenza A/B 03/27/2019 [facility] Influenza A Negative (Negative) Antigen [address] [place] [address] [phone] Influenza B Antigen Negative (Negative) 16 Comprehensive Metabolic 03/27/2019 [facility] Glucose 204 mg/dL High 74-[address] [place] [address] [phone] BUN 11 mg/dL Normal 7-18 Creatinine 1.1 mg/dL Normal 0.6-1.3 Glom Filtration Rate, Estimate >60 mL/min >60 If >60 mL/min >60 17 BUN/Creat 10.0 ratio Sodium 137 mmol/L Normal [...] Normal 3.4-10.[address] [place] [address] [phone] Red Blood Count 5.36 M/uL Normal 4.20-5.80 [...] 33.0-73.0 Lymph % 13.6 % Low 20.0-42.0 [place] % 8.9 % Normal 0.0-10.0 Eo% 0.5 % Normal 0.0-6.6 Bas% 0.4 % Normal 0.0-1.1 Immature Grans 0.5 % Normal 0.0-5.0 NRBC % 0.0 /100WBC < 10/ 100 WBC Neut# 7.51 K/uL High 1.8-7.0 Lymph # 1.34 K/uL Normal 1.0-4.0 [place] # 0.88 K/uL High 0.0-0.8 Eos # 0.05 K/uL Normal 0.0-0.5 Baso # 0.04 K/uL Normal 0.0-0.1 Immature Grans Absolute 0.05 K/uL NRBC # 0.00 K/uL Lactic Acid 03/27/2019 [facility] Lactic Acid 1.4 mmol/L Normal 0.4-1.[address] [place] [address] [phone] Lab Reflex >2.0 for Sepsis? Y Blood Culture 03/27/2019 [facility] Blood Culture NO GROWTH: FINAL [address] Aerobic <SEE NOTE> [place] [address] [phone] Blood Culture Anaerobic NO GROWTH: FINAL <SEE NOTE> 20 1 Non Clinical Advisor: [id number] 2 Non Clinical Advisor: [id number] 3 Non Clinical Advisor: [id number] 4 MD to be notified 5 Non Clinical Advisor: [id number] 6 E10.65 7 Note: Persistent reduction for 3 months or more in an eGFR <60 mL/min/1.73 m2 defines CKD. Patients with eGFR values >/=60 mL/min/1.73 m2 may also have CKD if evidence of persistent proteinuria is present. The original MDRD equation for estimated GFR is not valid for patients less than 18 years of age. Additional information may be found at www.kdoqi.org. 8 Elevated levels of HbA1c suggest the need for more aggressive treatment of glycemia. The [place] [employer] recommends that a primary goal of therapy should be a HbA1c of <7% and that physicians should re-evaluate the treatment regimen in patients with HbA1c values consistently >8%. 9 Reference Guidelines*: Desirable: ........... < 200 mg/dL Borderline High: ..... 200-239 mg/dL High: ................ >= 240 mg/dL * The National Cholesterol Education Program (NCEP) 10 Reference Guidelines*: Normal: ............. < 150 mg/dL Borderline High: .... 150-199 mg/dL High: ............... 200-499 mg/dL Very High: .......... > 500 mg/dL * Source: National Cholesterol Education Program (NCEP) 11 Reference Guidelines*: Low HDL: ..... < 40 mg/dL Normal: ..... 40-60 mg/dL Desirable: ... > 60 mg/dL *The National Cholesterol Education Program(NCEP) 12 Reference Guidelines*: Optimal:........... <100 mg/dL Near Optimal....... 100-129 mg/dL Borderline High.... 130-159 mg/dL High............... 160-189 mg/dL Very High.......... >=190 mg/dL * Source: National Cholesterol Education Program (NCEP) 13 BOILS IN ARMPIT, FLU-LIKE SYMPTOMS 14 NO GROWTH: FINAL REPORT 15 NO GROWTH: FINAL REPORT 16 Please Note: A POSITIVE result for influenza [...] influenza A and B molecular assay. Method: [employer] Chromatographic immunoassay 17 Note: Persistent reduction for 3 months or more in an eGFR <60 mL/min/1.73 m2 defines CKD. Patients with eGFR values >/=60 mL/min/1.73 m2 may also have CKD if evidence of persistent proteinuria is present. The original MDRD equation for estimated GFR is not valid for patients less than 18 years of age. Additional information may be found at www.kdoqi.org. 18 Specimen slightly Hemolyzed, interpret with caution 19 NO GROWTH: FINAL REPORT 20 NO GROWTH: FINAL REPORT Procedures Date Code Description Status 06/06/2019 78364 Retina Completed 06/06/2019 71302 Eye Exam Est Patient Comprehensive Completed 05/02/2019 12017 Eye Exam New Patient Comprehensive Completed Medical Devices Description No Information Available Encounters Type Date Location Provider Dx Diagnosis Office Visit 09/04/2019 [facility] Olivia Cameron, M75.42 Impingement 10:45a MD syndrome of left shoulder S46.002D Unsp inj musc/tend the rotator cuff of l shoulder, subs Office Visit 07/31/2019 1:50p Family Myke Sanchez, E10.42 Type [address] mellitus with diabetic polyneuropathy I10 Essential (primary) hypertension L03.116 Cellulitis of left lower limb S46.012A Strain of musc/tend the rotator cuff of left shoulder, init F43.23 Adjustment disorder with mixed anxiety and depressed mood Office Visit 05/31/2019 3:00p Family Naina Lujan, I10 Essential (primary) Jesus GALLEGOS hypertension E10.42 Type 1 diabetes mellitus with diabetic polyneuropathy L20.9 Atopic dermatitis, unspecified F52.21 Male erectile disorder Z23 Encounter for immunization Office Visit 04/05/2019 4:45p Family Naina Lujan, E10.65 Type 1 diabetes Jesus GALLEGOS mellitus with hyperglycemia L03.90 Cellulitis, unspecified E10.42 Type 1 diabetes mellitus with diabetic polyneuropathy R60.0 Localized edema F17.211 Nicotine dependence, cigarettes, in remission Z91.120 Pt intentl undrdose of meds regimen due to financl hardship Assessments Date Code Description Provider 09/04/2019 M75.42 Impingement syndrome of left shoulder Olivia Cameron MD 09/04/2019 S46.002D Unspecified injury of muscle(s) and tendon(s) Olivia Cameron MD of the rotator cuff of left shoulder, subsequent encounter 07/31/2019 E10.42 Type 1 diabetes mellitus with diabetic Naina Sanchez PA polyneuropathy 07/31/2019 I10 Essential (primary) hypertension Naina Sanchez PA 07/31/2019 L03.116 Cellulitis of left lower limb aNina Sanchez PA 07/31/2019 S46.012A Strain of muscle(s) and tendon(s) of the [place], Naina, PA rotator cuff of left shoulder, initial [...] to financial hardship Plan of Treatment Future Appointment(s):10/16/2019 9:30 am - Olivia Cameron MD at [facility]12/05/2019 10:00 am - Marcos East MD at [...] This is in the ulnar nerve distribution. [address] [place] [address] [phone]
[2019-09-23] MEDS ORDERED: NS 0.9% 1000 ML** 1,000 ML IV ONE ×2 (16:01→16:51)
[2019-09-23] MEDS ORDERED: Ondansetron INJ* 2 MG/ML VIAL IV ONE (16:01)
--- NOTE | 2019-09-23 16:08 | ED ---
Nausea/Vomiting/Diarrhea HPI - HPI Summary HPI Summary: 34 yo WM p/w nausea x 4 days associated with fatigue, bodyaches, chills and decreased appetite. Denies cough/sputum but has had drastically decreased PO intake, urine color is dark yellow and feels lightheaded. - History of Current Complaint Chief Complaint: UCGI Stated Complaint: VOMITING Time Seen by Provider: 09/23/19 15:44 Hx Obtained From: Patient Onset/Duration: Gradual Onset, Lasting Days Severity Initially: Moderate Severity Currently: Moderate Pain Intensity: 0 Character: Not Applicable Aggravating Factor(s): Nothing Alleviating Factor(s): Nothing Nausea/Vomiting Presence: Nauseated Vomiting Frequency: Every 3-4 hours Nausea/Vomiting Duration: 12-24 hours - Allergies/Home Medications Allergies/Adverse Reactions: Allergies Allergy/AdvReac Type Severity Reaction Status Date / Time cefaclor [From [facility]] Allergy Hives Verified 09/23/19 15:49 Home Medications: Home Medications Insulin LISPRO* [HumaLOG*] 1 unit .SEE ORDER SEE INSTRUCTIONS 10/03/15 [History Confirmed 09/23/19] Gabapentin CAP(*) [Neurontin 300 CAP(*)] 300 mg PO QID 09/03/19 [History Confirmed 09/23/19] DULoxetine DR CAP* [Cymbalta CAP*] 60 mg PO BEDTIME 09/23/19 [History Confirmed 09/23/19] Lisinopril TAB* [Prinivil TAB 5 MG*] 2.5 mg PO BEDTIME 09/23/19 [History Confirmed 09/23/19] Ondansetron ODT TAB* [Zofran 4 MG Odt TAB*] 4 mg PO Q6H PRN 5 Days #20 tab.odt 09/23/19 [Rx] PMH/Surg Hx/FS Hx/Imm Hx Previously Healthy: Yes Endocrine/Hematology History: Reports: Hx Diabetes - Type I Denies: Hx Thyroid Disease Cardiovascular History: Denies: Hx Hypertension Respiratory History: 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 Denies: Hx Chronic Obstructive Pulmonary Disease (COPD) GI History: Denies: Hx Ulcer Neurological History: Reports: Hx Peripheral Neuropathy Infectious Disease History: No Infectious Disease History: Denies: Hx Clostridium Difficile, Hx Hepatitis, Hx Human Immunodeficiency Virus (HIV), Hx of Known/Suspected MRSA, Hx Shingles, Hx Tuberculosis, Hx Known/ Suspected VRE, Hx Known/Suspected VRSA, History Other Infectious Disease, Traveled Outside the [place] in Last 30 Days - Family History Known Family History: Positive: Cardiac Disease, Hypertension, Diabetes, Non- Contributory - Social History Alcohol Use: None Hx Substance Use: Yes Substance Use Type: Reports: Marijuana Substance Use Comment - Amount & Last Used: few times each night Hx Tobacco Use: Yes Smoking Status (MU): Former Smoker Type: Cigarettes Amount Used/How Often: 3 cigarettes/week Length of Time of Smoking/Using Tobacco: 11 YRS Have You Smoked in the Last Year: Yes Review of Systems Positive: Chills, Fatigue Eyes: Negative ENT: Negative Cardiovascular: Negative Respiratory: Negative Gastrointestinal: Other Positive: Nausea Genitourinary: Negative Musculoskeletal: Negative Neurological/Mental Status: Negative Psychological: Normal All Other Systems Reviewed And Are Negative: Yes Physical Exam - Summary Physical Exam Summary: Vital Signs Reviewed: Yes Appearance: Positive: No Pain Distress Skin: Positive: Warm Head/Face: Positive: Normal Head/Face Inspection Eyes: Positive: Normal ENT: Positive:DRY MM Dental: Negative: Cervical Lymphadenopathy Neck: Positive: Supple Respiratory/Lung Sounds: Positive: Clear to Auscultation Cardiovascular: Positive: Normal, RRR, S1, S2 Abdomen Description: Positive: Nontender Musculoskeletal: Positive: Normal Neurological: Positive: Normal Psychiatric: Positive: Normal Vital Signs On Initial Exam: Initial Vitals Temp Pulse Resp BP Pulse Ox 36.6 C 95 17 131/81 100 09/23/19 15:45 09/23/19 15:45 09/23/19 15:45 09/23/19 15:45 09/23/19 15:45 Diagnostics - Vital Signs Vital Signs Temp Pulse Resp BP Pulse Ox 09/23/19 15:45 36.6 C 95 17 131/81 100 - Laboratory Lab Statement: Any lab studies that have been ordered have been reviewed, and results considered in the medical decision making process. Naus/Vom/Diarrhea Course/Dx - Course Course Of Treatment: Pt improved clinically after 2L NS IVF hydration and zofran 4mg IV x 1. I suspect current sx are due to mild to moderate dehydration and advised continued PO hydration and anticipate expectant improvement wiht increased PO intake and hydration at home. If sx worsen go to ED as pt is also type I diabetic BS monitoring and further workup. - Differential Dx/Diagnosis Provider Diagnosis: Dehydration, Flu-like symptoms Condition At Discharge: Stable Discharge ED - Sign-Out/Discharge Documenting (check all that apply): Patient Departure All imaging exams completed and their final reports reviewed: No Studies - Discharge Plan Condition: Stable Disposition: HOME Prescriptions: Ondansetron ODT TAB* [Zofran 4 MG Odt TAB*] 4 mg PO Q6H PRN 5 Days #20 tab.odt PRN Reason: Nausea Patient Education Materials: Acute Nausea and Vomiting (ED), Viral Syndrome (ED ) Referrals: Naina Sanchez PA [Primary Care Provider] - Additional Instructions: GO TO ED IF SX WORSEN - Billing Disposition and Condition Condition: STABLE Disposition: Home
[2019-09-23 16:41] LABS: Influenza A Molecular Negative (Negative); Influenza B Molecular Negative (Negative)
[2019-09-23 17:34] VITALS: BP 117/60
== END 2019-09-23 17:51 | disposition home or self-care (01) ==
LOC: UCCORT 15:38
DX: E86.0 Dehydration (principal); G62.9 Polyneuropathy, unspecified; J45.909 Unspecified asthma, uncomplicated; E10.9 Type 1 diabetes mellitus without complications; R53.83 Other fatigue; R68.83 Chills (without fever); Z88.1 Allergy status to other antibiotic agents; Z79.4 Long term (current) use of insulin; Z87.891 Personal history of nicotine dependence
CPT/HCPCS: 96361; 96374; 99212; G0463; J2405

== ENCOUNTER 2019-10-01 10:22 | Emergency (ER) | payer OTHER ==
--- OUTSIDE RECORDS SUMMARY | 2019-10-01 10:37 | XMS REPORT | Continuity of Care Document ---
:1985 External Reference #:[id number] Author Name Alfie Meadows MD (transmitted by agent of provider Amina Adams) Address [address] [place] [address] Care Team Providers Name Role Phone Naina Sanchez PA - Medical Care Team Information Account Specialist [phone] Problems Active Problems Provider Date Type 1 [...] Alesia Mills, 06/21/2019 300mg Capsules morning and MD afternoon, 2 at bedtime. Alclometasone twice a [...] 07/31/2019 - 30mg Caps every day at MD 09/05/2019 DR Wilks bedtime Doxycycline Hyclate take [...] CPT Code Status Date Vaccine Lot # [id number] Given 05/31/2019 Influenza Virus Vaccine, Quadrivalent, 36 Mos+, [id number] .[id number] Vital Signs Date Vital Result Comment [...] kg/m2 BSA (Body Surface Area) 1.96 m2 [place] body weight in kilograms 73 kg O2 % BldC Oximetry 93 % Results Test Acquired Date Facility Test Result H/L Range Note Laboratory test 09/23/2019 [facility] Point of Care 347 mg/dL High 70-100 1 finding [phone] Glucose Rapid Influenza 09/23/2019 [facility] Influenza A Negative Negative A & B Molecular [phone] Molecular Influenza B Molecular Negative Negative 2 Laboratory 09/08/2019 [facility] Ketones, NEGATIVE Negative 3, 4 test finding [address] [facility] [place] [address] [phone] Venous Blood 09/08/2019 [facility] Venous 7.33 Normal 7.31-7.41 Gas [address] [facility] [place] [place] [address] pH [phone] Venous Blood Gas Pco2 52 mmHg High 45-50 Venous Blood Gas Po2 46 mmHg Normal 40-60 Venous Blood Gas Hco3 27.1 mEq/L Venous Blood Gas Base XS 0.4 mEq/L Venous Blood Gas OS Sat. 81.0 % High 60-80 Ua RFX Micro & 09/08/2019 [facility] Urine Color Colorless Yellow Culture II [address] [place], [place] [address] [phone] Urine Clarity Clear Clear Urine Glucose - Dipstick NEGATIVE mg/dL Negative Urine Bilirubin - Dipstick NEGATIVE Negative Urine Ketone NEGATIVE mg/dL Negative Urine Specific [place] < 1.005 Low 1.010-1.030 Urine Blood NEGATIVE Negative Urine PH 6.0 Low 6.5-7.5 Urine Protein - Dipstick NEGATIVE mg/dL Negative Urine Urobilinogen - Dipstick < 2.0 mg/dL < 2.0 Urine Nitrite - Dipstick NEGATIVE Negative Urine Leuk Esterase NEGATIVE Negative Source: URINE, CLEAN CAT <SEE NOTE> 5 Poc Urinalysis 09/03/2019 [facility] Poc Glucose, 2+ Abnormal Negative [phone] Urine Poc Bilirubin, Urine NEGATIVE Negative Poc Ketone, Urine NEGATIVE Negative Poc Specific [place], Urine 1.010 Normal 1.010-1.030 Poc Blood, Urine NEGATIVE Negative 6 Poc pH, Urine 5.5 Normal 5-9 Poc Protein, Urine NEGATIVE Negative Poc Urobilinogen, Urine 0.2 Negative Poc Nitrite, Urine NEGATIVE Negative Poc Leukocytes, Urine NEGATIVE Negative Poc Color, Urine YELLOW Poc Clarity, Urine CLEAR Rapid Influenza 08/24/2019 [facility] Influenza A Negative Negative A & B Molecular [phone] Molecular Influenza B Molecular Negative Negative 7 Poc Urinalysis 08/24/2019 [facility] Poc Glucose, 1+ Abnormal Negative [phone] Urine Poc Bilirubin, Urine NEGATIVE Negative Poc Ketone, Urine NEGATIVE Negative Poc Specific [place], Urine 1.015 Normal 1.010-1.030 Poc Blood, Urine NEGATIVE Negative 8 Poc pH, Urine 5.5 Normal 5-9 Poc Protein, Urine NEGATIVE Negative Poc Urobilinogen, Urine 0.2 Negative Poc Nitrite, Urine NEGATIVE Negative Poc Leukocytes, Urine NEGATIVE Negative Poc Color, Urine DARK YELLOW Poc Clarity, Urine CLEAR Laboratory 08/24/2019 [facility] Point of 193 mg/dL High 70-100 9, 10 test finding [phone] Care Glucose CBC 04/06/[address] [facility] [address] White Blood 5.4 K/uL Normal 3.4-10.5 11 W/Automated [address] [place] [address] [phone] Red Blood Count 4.76 M/uL Normal 4.20-5.80 [...] 33.0-73.0 Lymph % 31.2 % Normal 20.0-42.0 [place] % 9.5 % Normal 0.0-10.0 Eo% 2.4 % Normal 0.0-6.6 Bas% 0.9 % Normal 0.0-1.1 Immature Grans 2.0 % Normal 0.0-5.0 NRBC % 0.0 /100WBC < 10/ 100 WBC Neut# 2.91 K/uL Normal 1.8-7.0 Lymph # 1.68 K/uL Normal 1.0-4.0 [place] # 0.51 K/uL Normal 0.0-0.8 Eos # 0.13 K/uL Normal 0.0-0.5 Baso # 0.05 K/uL Normal 0.0-0.1 Immature Grans Absolute 0.11 K/uL NRBC # 0.00 K/uL Comprehensive Metabolic 04/06/[address] Glucose 239 mg/dL High 74-106 Panel [address] [place] [address] [phone] BUN 13 mg/dL Normal 7-18 Creatinine 1.0 mg/dL Normal 0.6-1.3 Glom Filtration Rate, Estimate >60 mL/min >60 If >60 mL/min >60 12 BUN/Creat 13.0 ratio Sodium 139 mmol/L Normal [...] Y Reflex add FT4? Y Glycohemoglobin 04/06/[address] Glycohemoglobin 9.8 % High 4.2-6.3 13 A1c 4077 [facility] (A1c) [place] [address] [phone] eAG 235 mg/dL LDL Cholesterol Profile 04/06/[address] Cholesterol 137 mg/dL <272 13 [address] [facility] [place] [id number] [phone] Triglycerides 45 mg/dL <150 15 HDL Cholesterol 50 mg/dL >40 16 LDL-Cholesterol 78 mg/dL < 100 17 Reflex add FT3? Y Reflex add FT4? Y TSH Reflex 04/06/[address] Thyroid Stim 1.79 uIU/mL Normal 0.30-4.20 FT4 And/Or [address] Hormone FT3 [place], [place] [id number] [phone] Reflex add FT3? Y Reflex add FT4? Y Urine Dipstick 04/05/2019 [facility] Ua Color yellow Yellow Ua Clarity clear Clear Ua Leuko negative Negative Ua Nitrite negative Negative Ua Urobilinogen 3.5 High 0.2 - 1.0 E.U./dL Ua Protein negative Negative Ua PH 6.0 Low 6.5-7.5 Ua Blood negative Negative Ua Specific [place] 1.020 1.010-1.030 Ua Ketones 0.5 High Negative Ua Bilirubin negative Negative Ua Glucose 60 High Negative Microalbumin,Random 04/05/[address] Microalbumin,Urine 8.4 < 20.[address] mg/L [place], [place] [address] [phone] 1 Multicultural Services Librarian: [id number] 2 Multicultural Services Librarian: [id number] 3 DIABETIC ISSUES 4 Method: [place] AimTab Ketone Tablets 5 URINE, CLEAN CATCH 6 Multicultural Services Librarian: [id number] 7 Multicultural Services Librarian: [id number] 8 Multicultural Services Librarian: [id number] 9 MD to be notified 10 Multicultural Services Librarian: [id number] 11 E10.65 12 Note: Persistent reduction for 3 months or more in an eGFR <60 mL/min/1.73 m2 defines CKD. Patients with eGFR values >/=60 mL/min/1.73 m2 may also have CKD if evidence of persistent proteinuria is present. The original MDRD equation for estimated GFR is not valid for patients less than 18 years of age. Additional information may be found at www.kdoqi.org. 13 Elevated levels of HbA1c suggest the need for more aggressive treatment of glycemia. The [place] [employer] recommends that a primary goal of therapy should be a HbA1c of <7% and that physicians should re-evaluate the treatment regimen in patients with HbA1c values consistently >8%. 14 Reference Guidelines*: Desirable: ........... < 200 mg/dL Borderline High: ..... 200-239 mg/dL High: ................ >= 240 mg/dL * The National Cholesterol Education Program (NCEP) 15 Reference Guidelines*: Normal: ............. < 150 mg/dL Borderline High: .... 150-199 mg/dL High: ............... 200-499 mg/dL Very High: .......... > 500 mg/dL * Source: National Cholesterol Education Program (NCEP) 16 Reference Guidelines*: Low HDL: ..... < 40 mg/dL Normal: ..... 40-60 mg/dL Desirable: ... > 60 mg/dL *The National Cholesterol Education Program(NCEP) 17 Reference Guidelines*: Optimal:........... <100 mg/dL Near Optimal....... 100-129 mg/dL Borderline High.... 130-159 mg/dL High............... 160-189 mg/dL Very High.......... >=190 mg/dL * Source: National Cholesterol Education Program (NCEP) Procedures Date Code Description Status 09/12/2019 41723 Event Monitor Inter/Review Only Completed 06/06/2019 18926 Retina Completed 06/06/2019 67357 Eye Exam Est Patient Comprehensive Completed 05/02/2019 48914 Eye Exam New Patient Comprehensive Completed Medical [...] Medicine Laura E10.42 Type 1 diabetes [place] ROSY Carey mellitus with diabetic polyneuropathy I10 Essential (primary) hypertension L03.116 Cellulitis of left lower limb S46.012A Strain of musc/tend the rotator cuff of left shoulder, init F43.23 Adjustment disorder with mixed anxiety and depressed mood Office Visit 05/31/2019 3:00p [facility] Medicine Naina Sanchez, I10 Essential (primary) West CECIL GALLEGOS hypertension E10.42 Type 1 diabetes mellitus with diabetic polyneuropathy L20.9 Atopic dermatitis, unspecified F52.21 Male erectile disorder Z23 Encounter for immunization Office Visit 04/05/2019 4:45p [facility] Medicine Naina Sanchez, E10.65 Type [address] PA [...] rotator cuff of left shoulder, subsequent encounter 09/12/2019 R55 Syncope and collapse Alfie Meadows MD 09/05/2019 F43.23 Adjustment disorder with mixed anxiety [...] PA polyneuropathy 05/31/2019 L20.9 Atopic dermatitis, unspecified Naian Sanchez PA 05/31/2019 F52.21 Male erectile disorder [...] am - Alfie Meadows MD at Cardiology [id number]/16/2019 9:30 am - Olivia Cameron MD at [facility]opa[facility] [email or web address]/05/2019 10:00 am - Marcos East MD at [...] in the ulnar nerve distribution. [address] [place] [id number] [phone]
[2019-10-01 11:10] VITALS: BP 124/75
--- NOTE | 2019-10-01 11:32 | UC ---
Head Injury HPI - HPI Summary HPI Summary: 34 yo male presents with head injury. 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 He went to stand up and hit the back of his head on the metal shelf above him. No LOC. [place] dazed for a few seconds. He continued working and planned to continue his shift, but states the incident was seen by someone and his boss told him to come be evaluated. He took ibuprofen and feels better, but currently complains of a mild headache and nausea. Denies neck pain, vision changes, dizziness, numbness, tingling, vomiting. - History Of Current Complaint Chief Complaint: UCHeadInjury Stated Complaint: HEAD INJURY (WC) Time Seen by Provider: 10/01/19 11:31 Hx Obtained From: Patient Onset/Duration: Sudden Onset Severity Currently: Moderate Severity Initially: Moderate Pain Intensity: 7 Pain Scale Used: 0-10 Numeric - Allergies/Home Medications Allergies/Adverse Reactions: Allergies Allergy/AdvReac Type Severity Reaction Status Date / Time cefaclor [From [facility]] Allergy Hives Verified 10/01/19 11:04 Home Medications: Home Medications Insulin LISPRO* [HumaLOG*] 1 unit .SEE ORDER SEE INSTRUCTIONS 10/03/15 [History Confirmed 10/01/19] Gabapentin CAP(*) [Neurontin 300 CAP(*)] 300 mg PO QID 09/03/19 [History Confirmed 10/01/19] DULoxetine DR CAP* [Cymbalta CAP*] 60 mg PO BEDTIME 09/23/19 [History Confirmed 10/01/19] Lisinopril TAB* [Prinivil TAB 5 MG*] 2.5 mg PO BEDTIME 09/23/19 [History Confirmed 10/01/19] PMH/Surg Hx/FS Hx/Imm Hx Endocrine History: Diabetes Cardiovascular History: Hypertension - Surgical History Surgical History: None - Family History Known Family History: Positive: Cardiac Disease, Hypertension, Diabetes - Social History Occupation: Employed Full-time Lives: With Family Alcohol Use: Rare Substance Use Type: Marijuana Substance Use Comment - Amount & Last Used: few times each night Smoking Status (MU): Former Smoker Type: Cigarettes Amount Used/How Often: 3 cigarettes/week Length of Time of Smoking/Using Tobacco: 11 YRS Have You Smoked in the Last Year: Yes When Did the Patient Quit Smoking/Using Tobacco: QUIT NOVEMBER 2015 - Immunization History Most Recent Influenza Vaccination: none Review of Systems All Other Systems Reviewed And Are Negative: No Constitutional: Positive: Negative Skin: Positive: Negative Eyes: Positive: Negative ENT: Positive: Negative Respiratory: Positive: Negative Cardiovascular: Positive: Negative Gastrointestinal: Positive: Nausea Genitourinary: Positive: Negative Neurovascular: Positive: Negative Musculoskeletal: Positive: Negative Neurological/Mental Status: Positive: Headache Psychological: Positive: Negative Physical Exam - Summary Physical Exam Summary: GENERAL: NAD. WDWN. No pain distress. SKIN: No open wounds. HEENT: Head: No hematoma appreciated. No raccoon eyes or battles sign. Eyes: PERRLA. EOM intact. Ears: Hearing grossly normal. TMs intact, no bulging, erythema, or edema. No hemotympanum NECK: Supple. Nontender. FROM CHEST: CTAB. No r/r/w. No accessory muscle use. Breathing comfortably and in no distress. CV: RRR. Pulses intact. Brisk cap refill. MSK: FROM in B/L UEs and LEs with symmetric strength. NEURO: A&Ox3. 3 word recall, remote, recent memory, ability to follow 2-step directions, and attention intact. CN: II: Peripheral blackman intact. Vision normal. III, IV, : EOMI. No nystagmus. PERRLA. V: Sensations intact and symmetric. Opens mouth and clenches teeth. VII: No facial asymmetry. Forehead wrinkles. Grins, shuts eyes, frowns, puffs cheeks. VIII: Hearing intact to finger rub. IX, X: Swallows and coughs. Uvula midline. XI: Shrugs shoulders. Turns head against resistance. XII: No tongue deviation Aprgia-qf-skia are intact. Gait with normal base. Romberg: maintains balance, no pronator drift. Normal speech. No facial drooping. PSYCH: Age appropriate behavior. Triage Information Reviewed: Yes Vital Signs: Initial Vital Signs Temp 97.1 F 10/01/19 11:04 Pulse 85 10/01/19 11:04 Resp 16 10/01/19 11:04 BP 124/75 10/01/19 11:04 Pulse Ox 100 10/01/19 11:04 Vital Signs Reviewed: Yes Head Injury Course/Dx - Course Course Of Treatment: Exam WNL. Suspect mild head injury. He has the next 2 days off work, thus will write him a note to be off work today and return without restrictions as usually scheduled on 10/03. Advised to practice physical and mental rest and take tylenol /ibuprofen as directed for headache. - Differential Dx/Diagnosis Provider Diagnosis: Head injury Discharge ED - Sign-Out/Discharge Documenting (check all that apply): Patient Departure All imaging exams completed and their final reports reviewed: No Studies - Discharge Plan Condition: Stable Disposition: HOME Patient Education Materials: Head Injury (ED) Forms: *Work Release Referrals: Naina Sanchez PA [Primary Care Provider] - Additional Instructions: Preventing further injury Most concussions get better on their own. While you are healing, it's important that you not do too much and not play any organized sports. Physical rest You should rest for 24 to 48 hours. After that, you can slowly start to get back to regular activities. This includes light physical activity, as long as it doesn't make symptoms worse. You should continue to avoid contact sports, or other sports that could cause a head injury, until you have completely recovered. Mental rest Doctors also call this "cognitive rest." It involves avoiding things that make symptoms worse, such as reading, playing video games, or using a smartphone, tablet, or computer. Treating symptoms In addition to rest, there are ways to help relieve your symptoms. For example: Headache If you have a headache, you may take acetaminophen (sample brand name : Tylenol) and NSAIDs such as ibuprofen (sample brand names: Advil, Motrin) and naproxen (sample brand name: Aleve). These medicines should only be used for a few days and taken as directed. - Billing Disposition and Condition Condition: STABLE Disposition: Home
== END 2019-10-01 11:51 | disposition home or self-care (01) ==
LOC: UCCORT 10:22
DX: S09.90XA Unspecified injury of head, initial encounter (principal); I10 Essential (primary) hypertension; E11.9 Type 2 diabetes mellitus without complications; R11.0 Nausea; W22.8XXA Striking against or struck by other objects, initial encounter; Y92.9 Unspecified place or not applicable; Y99.0 Civilian activity done for income or pay; Z88.1 Allergy status to other antibiotic agents; Z79.4 Long term (current) use of insulin; Z79.899 Other long term (current) drug therapy; Z87.891 Personal history of nicotine dependence
CPT/HCPCS: 99211; G0463